=== PATIENT | female | born 1970 | race Caucasian/White ===

== ENCOUNTER 2023-04-02 21:08 | Outpatient (REF) | payer OTHER, SELFPAY ==
[2023-04-06 10:10] LABS: Age Gdln ACOG Testing Note (.); HPV Aptima Negative (Negative); IGP, Aptima HPV, rfx 16/18,45 Note (.)
== END 2023-04-02 21:09 | disposition home or self-care (01) ==
LOC: LAB 21:08
PROVIDERS: Visit Provider Physician Assistant
DX: Z01.419 Encounter for gynecological examination (general) (routine) without abnormal findings (principal)
CPT/HCPCS: 87624; G0145

== ENCOUNTER 2024-04-07 21:12 | Outpatient (REF) | payer OTHER, SELFPAY ==
--- OUTSIDE RECORDS SUMMARY | 2024-04-07 21:16 | XMS_ITS | CCD ---
Author Organization [facility] Care Team Providers Care Gps Navigation Installer Name Role Phone LEDA PAVONL B Unavailable Unavailable PAVON KUL B Unavailable Unavailable YASEMIN, AAKASH Admitting Unavailable YASEMINENRIQUEY Attending Unavailable ENRIQUE HAEZLY Consulting Unavailable Atilio Neff Primary Care Provider Hector Turner Unavailable Fina Flores Unavailable DANIELLE JUAREZ Attending Unavailable ATILIO NEFF Referring Unavailabl e AISHWARYA, [facility] Primary Care Unavailabl e AISHWARYA, ATILIO Horan Attending Unavailabl e AISHWARYA, ATILIO Referring Unavailabl e AISHWARYA, [facility] Primary Care Unavailabl e AISHWARYA, [facility] Primary Care Unavailabl JOHNNIE Antonio Attending Unavailable JOHNNIE LOPEZ Attending Unavailable JOHNNIE LOPEZ Referring Unavailable AISHWARYA, ATILIO Primary Care Unavailabl e AISHWARYA, ATILIO Primary Care UnavailCAMACHO Jaquez Attending Unavailable Hector Turner Admitting Unavailable Aishwarya Atilio Primary Care Unavailable Hector Turner Attending Unavailable Atilio Neff [facility] Unavailable Black Pham Attending Unavailab le Black Pham Admitting Unavailab le Allergies Allergy Classification Reported Allergen(s) Allergy Type Date of Onset Reaction(s) Facility Macrolides (antibiotic) (1 source) Clarithromycin Drug Allergy 03-16-19 10 [facility] Work Phone: Opioid Agonists (1 source) Meperidine Drug Allergy 06-16-19 10 Shortness of Breath [facility] Work Phone: (17 sources) Clarithromycin Drug Allergy 08-17-19 13 vomiting [facility] (17 sources) Meperidine Drug Allergy 08-17-19 13 hives [facility] (16 sources) Acetaminophen / oxyCODONE Drug Allergy insomnia [employer] Other (8 sources) Acetaminophen; Translations: [acetaminophen] Drug Allergy 06-08-19 insomnia [facility] (9 sources) Clarithromycin; Translations: [CLARITHROMYCIN] Drug Allergy 09-02-19 17 [facility] (9 sources) Meperidine; Translations: [MEPERIDINE] Drug Allergy 09-02-19 17 [facility] (8 sources) oxyCODONE; Translations: [oxycodone] Drug Allergy 06-08-19 [facility] (1 source) Acetaminophen / oxyCODONE; Translations: [OXYCODONE-ACETAM INOPHEN] Drug Allergy 09-02-19 [facility] (1 source) PROPOXYPHENE N-ACETAMINOPHEN; Translations: [PROPOXYPHENE N-ACETAMINOPHEN] Propensity to adverse reactions to drug (disorder) 02-25-19 18 [facility] (3 sources) bees Allergy to substance 10-31-19 [facility] Medications Current Medications Medication Drug Class(es) Dates Sig (Normalized) Sig (Original) 3 ML semaglutide 1.34 MG/ML Pen Injector [Ozempic] (3 sources) Start: 09-25-2022 inject 1 mg by subcutaneous injection every week Ozempic (1 MG/DOSE) 4 MG/3ML 1 mg Subcutaneous Once a week for 28 days Sep, Active Ozempic (1 MG/DO SE) 4 MG/3ML as directed Subcutaneous for 30 days Active 3 ML semaglutide 2.68 MG/ML Pen Injector [Ozempic] (14 sources) Start: 02-23-2022 inject 2 mg by subcutaneous injection every week Ozempic (2 MG/DOSE) 8 MG/3ML 2 mg Subcutaneous weekly for 30 days Feb, Active inject 2 mg by subcu taneous injection every week Ozempic (2 MG/DOSE) 8 MG/3ML INJECT 2 MG SUBCUTANEOUSLY ONCE A WEEK for 28 days Not-Taking inject 2 mg by subcu taneous injection every week Ozempic (2 MG/DOSE) 8 MG/3ML INJECT 2 MG SUBCUTANEOUSLY ONCE A WEEK for 28 days Active inject 2 mg by subcu taneous injection every week Ozempic (2 MG/DOSE) 8 MG/3ML INJECT 2 MG SUBCUTANEOUSLY ONCE A WEEK for 28 Active cariprazine 1.5 mg oral capsule (8 sources) Atypical Antipsychotic take 1 capsule by mouth every twenty-four hours Vraylar 1.5 MG 1 capsule Orally Once a day Active 24 hr desvenlafaxine succinate 50 mg extended release oral tablet (10 sources) Serotonin and Norepinephrine Reuptake Inhibitor Start: 2023 take 1 tablet by mouth once daily, then take 1 tablet by mouth every twenty-four hours Desvenlafaxine Succinate (Pristiq) 50 mg tablet extended release 24 hr Active 50 MG PO Daily April 04, 2023 12:00am take 1 tablet by mouth every twe nty-four hours diclofenac potassium 50 mg oral tablet (20 sources) Nonsteroidal Anti-inflammatory Drug Start: 04-04-2023 Diclofenac Potassium Active 50 MG PO As Directed April 04, 2023 1:00am Diclofenac Potassium 50 mg powder in packet (1 source) Start: 04-04-2023 Diclofenac Potassium 50 mg powder in packet Active 50 MG PO As Directed April 04, 2023 12:00am ibuprofen 200 mg oral tablet (20 sources) Nonsteroidal Anti-inflammatory Drug Start: 04-04-2023 take 1 tablet by mouth every six hours as needed Ibuprofen (Motrin Ib) 200 mg tablet Active 200 MG PO Every 6 hours as needed April 04, 2023 12:00am take 1 tablet by mouth every six hours levothyroxine sodium 0.2 mg oral capsule (20 sources) l-Thyroxine Start: 04-04-2023 take 1 capsule by mouth once daily Levothyroxine 200 mcg capsule Active 200 MCG PO Daily April 04, 2023 12:00am Start: 08-30-2015 take 1 capsule by [facility] every twenty-four hours Start: 08-30-[address] every twenty-four hours Levothyroxine Sodium 200 MCG 1 tablet Orally Once a day for 30 day(s) Aug, Active Start: 09-26-2011 take 0.5 tablet by [facility] once daily levothyroxine (SYNTHROID) 75 mcg tablet Take 0.5 tablets by mouth once daily. 15 tablet 11 09/26/2011 Active Comment on above: Take 0.5 tablets by mouth once daily. lisinopril 20 mg oral tablet (20 sources) Angiotensin Converting Enzyme Inhibitor Start: 04-13-2023 take 10 mg by mouth once daily Lisinopril 20 mg tablet Active 10 MG PO Daily April 13, 2023 8:20am Start: 04-13-2023 take 10 mg by mouth once daily Lisinopril Active 10 MG PO Daily April 13, 2023 9:20am Start: 04-04-2023 End: 04-13-2023 take 1 tablet by mouth once daily Lisinopril 20 mg tablet Discontinued 20 MG PO Daily April 04, 2023 12:00am April 13, 2023 8:24am Start: 07-28-2014 take 1 tablet by javier th every twenty-four hours LORazepam 0.5 mg oral tablet (20 sources) Benzodiazepine Start: 04-04-2023 take 1 tablet by mouth every twelve hours as needed Lorazepam 0.5 mg tablet Active 0.5 MG PO Every 12 hours as needed April 04, 2023 12:00am take 0.5 tablet by mouth every t welve hours melatonin 10 mg oral tablet (20 sources) Start: 04-04-2023 take 4 tablets by mouth once daily at bedtime Melatonin 10 mg tablet Active 40 MG PO Daily at bedtime April 04, 2023 12:00am Start: 04-04-2023 take 40 mg by mouth once daily at bedtime Melatonin Active 40 MG PO Daily at bedtime April 04, 2023 1:00am Start: 12-14-2009 Melatonin 200 mcg ORAL Tab Indications: Slow transit constipation TAKES 250 MG, FOUR TABLETS DAILY 0 12/14/2009 Active take 4 tablets by mo uth once daily at bedtime take 4 tablets by mo uth once daily at bedtime Melatonin 10 MG 4 tablets Orally QHS Active Comment on above: TAKES 250 MG, FOUR T ABLETS DAILY modified 24 hr metFORMIN hydrochloride 500 mg extended release oral tablet (20 sources) Biguanide Start: 04-13-2023 take 1 tablet by mouth once daily Metformin 500 mg tablet,ER em.retention 24 hr Active 1000 MG PO Daily April 13, 2023 8:20am Start: 04-04-2023 End: 04-13-2023 take 1 tablet by mouth twice daily Metformin 500 mg tablet,ER em.retention 24 hr Discontinued 500 MG PO Twice daily April 04, 2023 12:00am April 13, 2023 8:24am Start: 09-26-2011 take 1 tablet by javier twice daily metFORMIN 500 mg tablet Take 1 tablet by mouth twice daily. 60 tablet 11 09/26/2011 Active Comment on above: Take 1 tablet by javier twice daily. naproxen 500 mg oral tablet (20 sources) Nonsteroidal Anti-inflammatory Drug Start: 04-04-2023 take 1 tablet by mouth every twelve hours as needed Naproxen 500 mg tablet Active 500 MG PO Every 12 hours as needed April 04, 2023 12:00am take 1 tablet by mouth every twe lve hours omeprazole 20 mg delayed release oral capsule (19 sources) Proton Pump Inhibitor Start: 04-04-2023 take 1 capsule by mouth once daily Omeprazole 20 mg capsule,delayed release(DR/EC) Active 20 MG PO Daily April 04, 2023 12:00am take 1 capsule by mouth once sandy ly take 1 capsule by [facility] every twelve hours Omeprazole 20 MG 1 capsule Orally twice a day Not-Taking ozempic (1 mg/dose) 4 mg/3ml solution pen-injector (1 source) inject 1 mg by subcutaneous injection every week ozempic (2 mg/dose) 8 mg/3ml solution pen-injector (1 source) inject 2 mg by subcutaneous injection every week phentermine hydrochloride 37.5 mg oral tablet (20 sources) Sympathomimetic Amine Anorectic Start: 024 End: 025 take 1 tablet by mouth once daily Phentermine 37.5 mg tablet Active 37.5 MG PO Daily February 15, 2024 7:50am Start: 04-04-2023 End: 04-13-2023 Phentermine 37.5 mg tablet Discontinued 18.75 MG PO Daily April 04, 2023 12:00am April 13, 2023 8:38am Start: 04-04-2023 End: 04-13-2023 take 18.75 mg by mouth once daily Phentermine Discontinued 18.75 MG PO Daily April 04, 2023 1:00am April 13, 2023 9:38am Start: 03-14-2023 take 0.5 tablet by [facility] once daily Phentermine HCl 37.5 MG 1/2 tablet Orally Once a day for 30 days BMI 37.5. Feb, Active Semaglutide (Ozempic) 2 mg/dose (8 mg/3 mL) pen injector (20 sources) Start: 12-14-2023 inject 2 mg by subcutaneous injection every week Semaglutide (Ozempic) 2 mg/dose (8 mg/3 mL) pen injector Active 2 MG SUBCUT every week 3 December 14, 2023 10:00am Start: 12-14-2023 inject 2 mg by subcu taneous injection every week Semaglutide (Ozempic) 2 mg/dose (8 mg/3 mL) pen injector Active 2 MG SUBCUT every week 3 December 14, 2023 11:00am Start: 10-31-2023 End: 12-14-2023 inject 2 mg by subcutaneous injection every week Semaglutide (Ozempic) 2 mg/dose (8 mg/3 mL) pen injector Discontinued 2 MG SUBCUT every week 3 October 31, 2023 1:25pm December 14, 2023 10:01am Start: 10-31-2023 End: 12-14-2023 inject 2 mg by subcutaneous injection every week Semaglutide (Ozempic) 2 mg/dose (8 mg/3 mL) pen injector Discontinued 2 MG SUBCUT every week 3 October 31, 2023 2:25pm December 14, 2023 11:01am Start: 10-31-2023 inject 2 mg by subcu taneous injection every week Semaglutide (Ozempic) 2 mg/dose (8 mg/3 mL) pen injector Active 2 MG SUBCUT every week 3 October 31, 2023 2:25pm Start: 09-07-2023 End: 10-31-2023 inject 2 mg by subcutaneous injection every week Semaglutide (Ozempic) 2 mg/dose (8 mg/3 mL) pen injector Discontinued 2 MG SUBCUT every week 3 September 07, 2023 8:50am October 31, 2023 1:26pm Start: 09-07-2023 End: 10-31-2023 inject 2 mg by subcutaneous injection every week Semaglutide (Ozempic) 2 mg/dose (8 mg/3 mL) pen injector Discontinued 2 MG SUBCUT every week 3 September 07, 2023 9:50am October 31, 2023 2:26pm Start: 07-27-2023 End: 09-07-2023 inject 2 mg by subcutaneous injection every week Semaglutide (Ozempic) 2 mg/dose (8 mg/3 mL) pen injector Discontinued 2 MG SUBCUT every week 3 July 27, 2023 8:18am September 07, 2023 8:51am Start: 07-27-2023 End: 09-07-2023 inject 2 mg by subcutaneous injection every week Semaglutide (Ozempic) 2 mg/dose (8 mg/3 mL) pen injector Discontinued 2 MG SUBCUT every week 3 July 27, 2023 9:18am September 07, 2023 9:51am Start: 07-27-2023 inject 2 mg by subcu taneous injection every week Semaglutide (Ozempic) 2 mg/dose (8 mg/3 mL) pen injector Active 2 MG SUBCUT every week 3 July 27, 2023 9:18am Start: 06-08-2023 End: 07-27-2023 inject 2 mg by subcutaneous injection every week Semaglutide (Ozempic) 2 mg/dose (8 mg/3 mL) pen injector Discontinued 2 MG SUBCUT every week 3 June 08, 2023 7:51am July 27, 2023 8:19am Start: 06-08-2023 End: 07-27-2023 inject 2 mg by subcutaneous injection every week Semaglutide (Ozempic) 2 mg/dose (8 mg/3 mL) pen injector Discontinued 2 MG SUBCUT every week 3 June 08, 2023 8:51am July 27, 2023 9:19am Start: 06-08-2023 inject 2 mg by subcu taneous injection every week Semaglutide (Ozempic) 2 mg/dose (8 mg/3 mL) pen injector Active 2 MG SUBCUT every week 3 June 08, 2023 8:51am Start: 04-13-2023 End: 06-08-2023 inject 2 mg by subcutaneous injection every week Semaglutide (Ozempic) 2 mg/dose (8 mg/3 mL) pen injector Discontinued 2 MG SUBCUT every week 3 April 13, 2023 8:38am June 08, 2023 7:52am Start: 04-13-2023 End: 06-08-2023 inject 2 mg by subcutaneous injection every week Semaglutide (Ozempic) 2 mg/dose (8 mg/3 mL) pen injector Discontinued 2 MG SUBCUT every week 3 April 13, 2023 9:38am June 08, 2023 8:52am Start: 04-04-2023 End: 04-13-2023 inject 2 mg by subcutaneous injection every week Semaglutide (Ozempic) 2 mg/dose (8 mg/3 mL) pen injector Discontinued 2 MG SUBCUT every week 3 April 04, 2023 4:10pm April 13, 2023 8:38am Start: 04-04-2023 End: 04-13-2023 inject 2 mg by subcutaneous injection every week Semaglutide (Ozempic) 2 mg/dose (8 mg/3 mL) pen injector Discontinued 2 MG SUBCUT every week 3 April 04, 2023 5:10pm April 13, 2023 9:38am Start: 04-04-2023 End: 04-04-2023 inject 2 mg by subcutaneous injection every week Semaglutide (Ozempic) 2 mg/dose (8 mg/3 mL) pen injector Discontinued 2 MG SUBCUT every week April 04, 2023 12:00am April 04, 2023 4:13pm Start: 04-04-2023 End: 04-04-2023 inject 2 mg by subcutaneous injection every week Semaglutide (Ozempic) 2 mg/dose (8 mg/3 mL) pen injector Discontinued 2 MG SUBCUT every week April 04, 2023 1:00am April 04, 2023 5:13pm Tirzepatide (1 source) Start: 02-15-2024 Tirzepatide (Mounjaro) 2.5 mg/0.5 mL pen injector Active 2.5 MG SUBCUT every week 2 February 15, 2024 12:00am tiZANidine 2 mg oral tablet (20 sources) Central alpha-2 Adrenergic Agonist Start: 04-13-2023 take 2 tablets by mouth once as needed Tizanidine 2 mg tablet Active 4 MG PO Once as needed April 13, 2023 8:21am Start: 04-13-2023 take 4 mg by mouth once Tizani dine Active 4 MG PO Once April 13, 2023 9:21am Start: 04-04-2023 End: 04-13-2023 take 1 tablet by mouth three times daily as needed Tizanidine 2 mg tablet Discontinued 2 MG PO Three times daily as needed April 04, 2023 12:00am April 13, 2023 8:24am take 1 tablet by javier th every eight hours traZODone hydrochloride 100 mg oral tablet (20 sources) Serotonin Reuptake Inhibitor Start: 12-14-2023 take 1 tablet by mouth once daily at bedtime Trazodone 100 mg tablet Active 100 MG PO Daily at bedtime December 14, 2023 9:41am Start: 04-04-2023 End: 12-14-2023 Trazodone 100 mg tablet Disc ontinued 50 MG PO Daily at bedtime April 04, 2023 12:00am December 14, 2023 9:41am Start: 04-04-2023 End: 12-14-2023 take 50 mg by mouth once daily at bedtime Trazodone Discontinued 50 MG PO Daily at bedtime April 04, 2023 1:00am December 14, 2023 10:41am take 0.5 tablet by m out at bedtime take 2 tablets by mo azh at bedtime traZODone HCl 100 MG 2 tablets Orally HS Active vortioxetine 20 mg oral tablet (13 sources) take 1 tablet by javier th every twenty-four hours Trintellix 20 MG 1 tablet Orally Once a day Active Completed/Discontinued Medications Medication Drug Class(es) Dates Sig (Normalized) Sig (Original) ferrous sulfate 325 mg oral tablet (7 sources) Start: 04-13-2023 End: 09-07-2023 take 1 tablet by mouth once daily Ferrous Sulfate 325 mg (65 mg iron) tablet Discontinued 325 MG PO Daily April 13, 2023 12:00am September 07, 2023 8:25am liothyronine sodium 0.005 mg oral tablet (1 source) l-Triiodothyron ine Start: 09-26-2011 take 1 tablet by mouth twice daily liothyronine 5 mcg tablet Take 1 tablet by mouth twice daily. 60 tablet 11 09/26/2011 Active Comment on above: Take 1 tablet by javier th twice daily. microencapsulated potassium chloride 20 meq extended release oral tablet (1 source) Start: 05-02-2012 take 1 tablet by mouth once daily potassium chloride SR 20 mEq tablet Take 1 tablet by mouth once daily. 30 tablet 1 05/02/2012 Active Comment on above: Take 1 tablet by [facility] once daily. 0.25 mg, 0.5 mg dose 1.5 ml semaglutide 1.34 mg/ml pen injector (8 sources) Start: 01-11-2022 Ozempic (0.25 or 0.5 MG/DOSE) 2 MG/1.5ML 0.5 mg dose Subcutaneous weekly for 30 days 30 Dec, 2021 Not-Taking sertraline 25 mg oral tablet (1 source) Serotonin Reuptake Inhibitor take 1 tablet by mouth once daily sertraline (ZOLOFT) 25 mg ORAL tablet Take 25 mg by mouth once daily. 0 Active Comment on above: Take 25 mg by mouth once daily. Problems Active Problems Problem Classification Problem Date Documented Da te Episodic/Chronic Asthma (7 sources) Asthma; Translations: [Unspecified asthma, uncomplicated] 04-13-2023 Chronic Cardiac dysrhythmias (1 source) Sinus bradycardia; Translations: [Bradycardia, unspecified] 04-30-2012 Episodic Complications of surgical procedures or medical care (16 sources) Postoperative hypothyroidism; Translations: [Hypothyroidism, postsurgical] Chronic Diabetes mellitus with complications (20 sources) Disorder due to type 2 diabetes mellitus; Translations: [Diabetes mellitus type 2 with complications] Chronic Diabetes mellitus without complication (13 sources) Diabetes mellitus; Translations: [Type 2 diabetes mellitus without complications] 04-13-2023 Chronic Diabetes mellitus without complication (20 sources) Impaired fasting glycemia; Translations: [IFG (impaired fasting glucose)] Episodic Esophageal disorders (20 sources) Diffuse spasm of esophagus; Translations: [Esophagospasm] Chronic Essential hypertension (14 sources) Essential hypertension; Translations: [Essential (primary) hypertension] 04-13-2023 Chronic Gastritis and duodenitis (16 sources) Chronic gastritis; Translations: [Chronic gastritis] Chronic Gastroduodenal ulcer (except hemorrhage) (16 sources) Pyloric ulcer; Translations: [Antral ulcer] Chronic Headache; including migraine (1 source) Other migraine, not intractable, without status migrainosus; Translations: [Other migraine, not intractable, without status migrainosus] Onset: 01-08-2018 Chronic Headache; including migraine (2 sources) Headache; including migraine Onset: 05-20-2023 Immunizations and screening for infectious disease (1 source) Encounter for screening for human papillomavirus (HPV); Translations: [ENC SCREENING HUMAN PAPILLOMAVIRUS] Onset: 10-21-2018 Episodic Mood disorders (20 sources) Major depression, single episode; Translations: [Major depressive disorder, single episode, unspecified] Chronic Nonspecific chest pain (1 source) Chest pain, unspecified; Translations: [Chest pain, unspecified] Onset: 05-20-2023 Episodic Other circulatory disease (1 source) Elevated blood-pressure reading, without diagnosis of hypertension Episodic Other endocrine disorders (8 sources) Polycystic ovary syndrome; Translations: [Polycystic ovarian syndrome] 04-30-2012 Chronic Other endocrine disorders (15 sources) Polycystic ovaries; Translations: [Polycystic ovarian syndrome] Chronic Other endocrine disorders (9 sources) Polycystic ovarian syndrome; Translations: [PCOS (polycystic ovarian syndrome)] Chronic Other gastrointestinal disorders (20 sources) Dysphagia; Translations: [Dysphagia] Episodic Other nutritional; endocrine; and metabolic disorders (16 sources) Metabolic syndrome X; Translations: [Metabolic syndrome] Chronic Other nutritional; endocrine; and metabolic disorders (8 sources) Metabolic syndrome Chronic Other nutritional; endocrine; and metabolic disorders (15 sources) Body mass index 40+ - severely obese; Translations: [Body mass index (BMI) 40.0-44.9, adult] Chronic Other nutritional; endocrine; and metabolic disorders (20 sources) Obese class II; Translations: [Body mass index (BMI) 35.0-35.9, adult] 04-13-2023 Chronic Other nutritional; endocrine; and metabolic disorders (16 sources) Obesity; Translations: [Obesity, unspecified] Chronic Other nutritional; endocrine; and metabolic disorders (13 sources) Obesity, unspecified; Translations: [Obesity, unspecified] Chronic Other nutritional; endocrine; and metabolic disorders (4 sources) Body mass index (BMI) 35.0-35.9, adult Chronic Other nutritional; endocrine; and metabolic disorders (1 source) Body mass index (BMI) 33.0-33.9, adult Chronic Other nutritional; endocrine; and metabolic disorders (20 sources) Abnormal weight gain; Translations: [Weight gain, abnormal] 07-26-2023 Episodic Other nutritional; endocrine; and metabolic disorders (1 source) Abnormal weight gain Episodic Poisoning by other medications and drugs (2 sources) Poisoning by unspecified drugs, medicaments and biological substances, undetermined, initial encounter; Translations: [Poisoning by unspecified drugs, medicaments and biological substances, accidental (unintentional), initial encounter] Onset: 07-29-2023 Episodic Residual codes; unclassified (16 sources) Obstructive sleep apnea syndrome; Translations: [Obstructive sleep apnea (adult) (pediatric)] Chronic Residual codes; unclassified (13 sources) Obstructive sleep apnea (adult) (pediatric); Translations: [Obstructive sleep apnea (adult)(pediatric)] Chronic Residual codes; unclassified (7 sources) Obstructive sleep apnea of adult; Translations: [Obstructive sleep apnea (adult) (pediatric)] 04-13-2023 Chronic Residual codes; unclassified (20 sources) Insomnia; Translations: [Insomnia, unspecified] 04-13-2023 Episodic Residual codes; unclassified (8 sources) Insomnia, unspecified Episodic Syncope (1 source) Syncope; Translations: [Syncope and collapse] 04-30-2012 Episodic Thyroid disorders (20 sources) Hypothyroidism; Translations: [Hypothyroidism, unspecified] Onset: 08-22-2010 08-22-2010 Chronic Thyroid disorders (16 sources) Disorder of thyroid gland; Translations: [History of thyroidectomy, total] Episodic Unclassified (1 source) Toxicology Problem Onset: 07-29-2023 Past or Other Problems Problem Classification Problem Date Documented Da te Episodic/Chronic Administrative/social admission (1 source) Dietary counseling and surveillance; Translations: [Dietary counseling and surveillance] Onset: 03-08-2023 Episodic Other gastrointestinal disorders (1 source) Incontinence of feces; Translations: [Full incontinence of feces] Onset: 06-02-2012 06-02-2012 Episodic Other screening for suspected conditions (not mental disorders or infectious disease) (5 sources) Encounter for screening for malignant neoplasm of cervix; Translations: [Encounter for screening mammogram for malignant neoplasm of breast] Onset: 10-15-2018 Episodic Residual codes; unclassified (1 source) Asymptomatic menopausal state; Translations: [Asymptomatic menopausal state] Onset: 04-13-2023 Episodic Suicide and intentional self-inflicted injury (1 source) Suicidal ideations; Translations: [Suicidal ideations] Onset: 02-22-2017 Episodic Results Test Name Value Interpretation Reference Range Facility Laboratory - Hematology and Cell countson 10-31-2023 HbA1c (Bld) [Mass fraction] 5.2 % [facility] Laboratory - Chemistry and C hemistry - challengeon 09-06-2023 Cobalamin (Vitamin B12) [Mass/Vol] 414 pg/mL [facility] Cholesterol [Mass/Vol] 164 mg/dL [facility] Cholesterol in HDL [Mass/Vol] 78 mg/dL [facility] Cholesterol in LDL [Mass/Vol] 74 mg/dL [facility] Cholesterol.total/Cho lesterol in HDL [Mass ratio] 2.1 {ratio} [facility] Triglyceride [Mass/Vol] 60 mg/dL [facility] Albumin [Mass/Vol] 4.5 g/dL [facility] ALP [Catalytic activity/Vol] 79 U/L [facility] ALT [Catalytic activity/Vol] 16 U/L [facility] AST [Catalytic activity/Vol] 18 U/L [facility] Bilirubin [Mass/Vol] 0.4 mg/dL [facility] Calcium [Mass/Vol] 10 mg/dL [facility] Chloride [Moles/Vol] 102 mmol/L [facility] CO2 [Moles/Vol] 28 mmol/L [facility] Creatinine [Mass/Vol] 0.76 mg/dL [facility] GFR/1.73 sq M.predicted MDRD (S/P/Bld) [Vol rate/Area] 94 mL/min/{1.73_m2} [facility] Glucose [Mass/Vol] 85 mg/dL [facility] Potassium [Moles/Vol] 4.0 mmol/L [facility] Protein [Mass/Vol] 6.8 g/dL [facility] Sodium [Moles/Vol] 140 mmol/L [facility] Urea nitrogen [Mass/Vol] 16 mg/dL [facility] Creatinine (U) [Mass/Vol] 308.1 mg/dL [facility] No Panel Informationon 09-05 Thyroid Stimulating Hormone 3rd Gen 0.03 [facility] VLDL Cholesterol 12 mg/dL [facility] Estimated GFR (Non- 94 mL/min [facility] Urine Microalbumin mg/dl <1.2 [facility] ACETAMINOPHENon 07-30-2023 Acetaminophen [Mass/Vol] 2.5 ug/mL Low 10.0-30.0 [facility] Comment on above: Result Comment: Refe rence ranges are for therapeutic limits. Performed By: #### 3 298-7 ####[facility] ([id number])[address] [place] [address] 28015 DRUG SCREEN, URINEon 024 AMPHETAMINE/METHAMP Negative Normal NEG [facility] Comment on above: Result Comment: AMPH /METH screening cut off = 1000 ng/mL Performed By: #### D MARSHALL ####[facility] ([id number])[address] [place] [address] 40995 BARBITURATES Negative Normal NEG [facility] Comment on above: Result Comment: Anna iturates screening cut off value = 200 ng/mL Performed By: #### D MARSHALL ####[facility] ([id number])[address] [place] [address] 44453 BENZODIAZEPINES Positive Abnormal NEG [facility] Comment on above: Result Comment: Conf irmation available upon request. Benzodiazepines screening cut off value = 200 ng/mL Performed By: #### D MARSHALL ####[facility] ([id number])[address] [place] [address] 22640 CANNABINOIDS Negative Normal NEG [facility] Comment on above: Result Comment: [place] abinoids/THC screening cut off value = 50 ng/mL Performed By: #### D MARSHALL ####[facility] ([id number])[address] [place] [address] 94907 COCAINE METABOLITE Negative Normal NEG [facility] Comment on above: Result Comment: Coca ine screening cut off value = 300 ng/mL Performed By: #### D MARSHALL ####[facility] ([id number])[address] [place] [address] 17813 ECSTASY Negative Normal NEG [facility] Comment on above: Result Comment: Ecst asy screening cut off value = 500 ng/mL This report is intended for use in clinical monitoring or management of patients. Performed By: #### D MARSHALL ####[facility] ([id number])[address] [place] [address] 28364 METHADONE Negative Normal NEG [facility] Comment on above: Result Comment: Meth adone screening cut off value = 300 ng/mL. Performed By: #### D MARSHALL ####[facility] ([id number])[address] [place] [address] 52341 OPIATES Negative Normal NEG [facility] Comment on above: Result Comment: Opia robby screening cut off value = 300 ng/mL NOTE: This test is used for the detection of codeine, hydrocodone (>1000 ng/mL), morphine and hydromorphone (>900 ng/mL) in urine. Performed By: #### D MARSHALL ####[facility] ([id number])[address] [place] [address] 49327 OXYCODONE Negative Normal NEG [facility] Comment on above: Result Comment: Oxyc odone screening cut off value = 300 ng/mL NOTE: This test is used for the detection of oxycodone and oxymorphone in urine. Performed By: #### D MARSHALL ####[facility] ([id number])[address] [place] [address] 63949 PHENCYCLIDINE Negative Normal NEG [facility] Comment on above: Result Comment: Phen cyclidine screening cut off value = 25 ng/mL Performed By: #### D MARSHALL ####[facility] ([id number])[address] [place] [address] 20329 URINE CULTUREon 07-30-2023 Bacteria identified Cx Nom (U) CULTURE RESULTS <10,000 ORGANISMS/ML NORMAL URO GENITAL NATHALIE Normal [facility] Comment on above: Performed By: #### 6 30-4 ####[facility] ([id number])[address] [place] [address], [address], [place] [address] URN MACROSCOPIC NURon 2023 BILIRUBIN CATHERINE Negative Normal NEG [facility] Comment on above: Performed By: #### N UM ####[facility] ([id number])[address] [place] [address], [place] [address] BLOOD/HGB CATHERINE Negative Normal NEG [facility] Comment on above: Performed By: #### N UM ####[facility] ([id number])[address] [place] [address], [place] [address] GLUCOSE CATHERINE Negative Normal NEG [facility] Comment on above: Performed By: #### N UM ####[facility] ([id number])[address] [place] [address], [place] [address] KETONES CATHERINE Negative Normal NEG [facility] Comment on above: Performed By: #### N UM ####[facility] ([id number])[address] [place] [address], [place] [address] LEUKOCYTE ESTERASE CATHERINE Negative Normal NEG [facility] Comment on above: Performed By: #### N UM ####[facility] ([id number])[address] [place] [address], [place] [address] NITRITE CATHERINE Negative Normal NEG [facility] Comment on above: Performed By: #### N UM ####[facility] ([id number])[address] [place] [address], [place] [address] PH CATHERINE 6.0 Normal 5.0-8.5 [facility] Comment on above: Performed By: #### N UM ####[facility] ([id number])[address] [place] [address], [place] [address] PROTEIN CATHERINE Negative Normal NEG [facility] Comment on above: Performed By: #### N UM ####[facility] ([id number])[address] [place] [address] 07472 SPECIFIC GRAVITY CATHERINE 1.015 Normal 1.003-1.035 [facility] Comment on above: Performed By: #### N UM ####[facility] ([id number])[address] [place] [address] 14737 UROBILINOGEN CATHERINE 0.2 eu/dL Normal <1.1 [facility] Comment on above: Performed By: #### N UM ####[facility] ([id number])[address] [place] [address] 96447 ACETAMINOPHENon 07-29-2023 Acetaminophen [Mass/Vol] 3.6 ug/mL Low 10.0-30.0 [facility] Comment on above: Result Comment: Refe rence ranges are for therapeutic limits. Performed By: #### C BCA, CMP, 3298-7, 5643-2, 4024-6 ####[facility] ([id number])[address] [place] [address] 85798 CBC AND AUTO DIFFon 07-29-19 24 ABSOLUTE BASOPHIL 0.0 X10E9/L Normal 0.0-0.2 [facility] Comment on above: Performed By: #### C BCA, CMP, 3298-7, 5643-2, 4024-6 ####[facility] ([id number])[address] [place] [address] 03424 ABSOLUTE NEUTROPHIL 2.7 X10E9/L Normal 1.5-6.6 [facility] Comment on above: Performed By: #### C BCA, CMP, 3298-7, 5643-2, 4024-6 ####[facility] ([id number])[address] [place] [address] 65568 Basophils/100 WBC (Bld) 0.6 % Normal [facility] Comment on above: Performed By: #### C BCA, CMP, 3298-7, 5643-2, 4024-6 ####[facility] ([id number])[address] [place] [address] 89957 Eosinophils (Bld) [#/Vol] 0.1 10*3/uL Normal 0.0-0.4 [facility] Comment on above: Performed By: #### Chelo RICO [facility], [facility], [facility]-2, 4023-6 ####[facility] ([id number])[address] [place] [address] 80618 Eosinophils/100 WBC (Bld) 2.4 % Normal [facility] Comment on above: Performed By: #### Chelo RICO [facility], [facility], [facility]-2, 4023-6 ####[facility] ([id number])[address] [place] [address] 95044 Erythrocyte distribution width (RBC) [Ratio] 14.3 % Normal 11.5-15.0 [facility] Comment on above: Performed By: #### Chelo RICO [facility], [facility], [facility]-2, 4026 ####[facility] ([id number])[address] [place] [address] 40499 Hematocrit (Bld) [Volume fraction] 31.5 % Low 35-47 [facility] Comment on above: Performed By: #### Chelo RICO [facility], [facility], [facility]-2, 4026 ####[facility] ([id number])[address] [place] [address] 59951 Hemoglobin (Bld) [Mass/Vol] 10.6 g/dL Low 11.7-15.5 [facility] Comment on above: Performed By: #### Chelo RICO, CMP, [facility], 43-2, 4024-6 ####[facility] ([id number])[address] [place] [address] 60109 Lymphocytes (Bld) [#/Vol] 1.6 10*3/uL Normal 1.0-3.5 [facility] Comment on above: Performed By: #### C TRISHA CMP, [facility], 5643-2, 4024-6 ####[facility] ([id number])[address] [place] [address] 00512 Lymphocytes/100 WBC (Bld) 33.2 % Normal [facility] Comment on above: Performed By: #### Chelo RICO, CMP, [facility], [facility]-2, 4023-6 ####[facility] ([id number])[address] [place] [address] 10413 MCH (RBC) [Entitic mass] 27.5 pg Normal 27-34 [facility] Comment on above: Performed By: #### Chelo RICO, CMP, [facility], [facility]-2, 4024-6 ####[facility] ([id number])[address] [place] [address] 44803 MCHC (RBC) [Mass/Vol] 33.6 g/dL Normal 32-36 [facility] Comment on above: Performed By: #### Chelo RICO, CMP, [facility], 43-2, 4024-6 ####[facility] ([id number])[address] [place] [address] 19119 MCV (RBC) [Entitic vol] 82 fL Normal 80-100 [facility] Comment on above: Performed By: #### Chelo RICO, CMP, [facility], 43-2, 4024-6 ####[facility] ([id number])[address] [place] [address] 17029 Monocytes (Bld) [#/Vol] 0.5 10*3/uL Normal 0-0.9 [facility] Comment on above: Performed By: #### Chelo RICO, CMP, [facility], 5643-2, 4024-6 ####[facility] ([id number])[address] [place] [address] 23887 Monocytes/100 WBC (Bld) 9.3 % Normal [facility] Comment on above: Performed By: #### C BCA, CMP, 3298-7, 5643-2, 4024-6 ####[facility] ([id number])[address] [place] [address] 91340 Neutrophils/100 WBC (Bld) 54.5 % Normal [facility] Comment on above: Performed By: #### C TRISHA, CMP, 3298-7, 5643-2, 4024-6 ####[facility] ([id number])[address] [place] [address] 02459 Platelet mean volume (Bld) [Entitic vol] 8.1 fL Normal 7-12 [facility] Comment on above: Performed By: #### Chelo RICO, CMP, 3298-7, 5643-2, 4024-6 ####[facility] ([id number])[address] [place] [address] 54758 Platelets (Bld) [#/Vol] 197 10*3/uL Normal 150-450 [facility] Comment on above: Performed By: #### Chelo RICO, CMP, 3298-7, 5643-2, 4024-6 ####[facility] ([id number])[address] [place] [address] 46201 RBC COUNT 3.84 X10E12/L Normal 3.80-5.20 [facility] Comment on above: Performed By: #### Chelo RICO, CMP, 3298-7, 5643-2, 4024-6 ####[facility] ([id number])[address] [place] [address] 63285 WBC (Bld) [#/Vol] 4.9 10*3/uL Normal 4.0-11.0 [facility] Comment on above: Performed By: #### C BCA, CMP, 3298-7, 5643-2, 4024-6 ####[facility] ([id number])[address] [place] [address] [place] [address] COMPREHENSIVE METABOLIC PANE Tera 07-29-2023 Albumin [Mass/Vol] 3.6 g/dL Normal 3.2-5.3 [facility] Comment on above: Performed By: #### C BCA, CMP, 3298-7, 5643-2, 4024-6 ####[facility] ([id number])[address] [place] [address] 67208 ALP [Catalytic activity/Vol] 58 U/L Normal 39-130 [facility] Comment on above: Performed By: #### C BCA, CMP, 3298-7, 5643-2, 4024-6 ####[facility] ([id number])[address] [place] [address] [place] [address] ALT [Catalytic activity/Vol] 20 U/L Normal 0-31 [facility] Comment on above: Performed By: #### C BCA, CMP, 3298-7, 5643-2, 4024-6 ####[facility] ([id number])[address] [place] [address] [place] [address] Anion gap [Moles/Vol] 6 mmol/L Normal 5-15 [facility] Comment on above: Performed By: #### C BCA, CMP, 3298-7, 5643-2, 4024-6 ####[facility] ([id number])[address] [place] [address] [place] [address] AST [Catalytic activity/Vol] 23 U/L Normal 0-41 [facility] Comment on above: Performed By: #### C BCA, CMP, 3298-7, 5643-2, 4024-6 ####[facility] ([id number])[address] [place] [address] 81353 Bilirubin [Mass/Vol] 0.4 mg/dL Normal 0.3-1.2 [facility] Comment on above: Performed By: #### C TRISHA CMP, 3298-7, 5643-2, 4024-6 ####[facility] ([id number])[address] [place] [address] 65514 Calcium [Mass/Vol] 9.0 mg/dL Normal 8.5-10.5 [facility] Comment on above: Performed By: #### C TRISHA, CMP, [facility], 5643-2, 4024-6 ####[facility] ([id number])[address] [place] [address] 46536 Chloride [Moles/Vol] 104 mmol/L Normal 98-109 [facility] Comment on above: Performed By: #### C ALEXANDER RICO, [facility], 5643-2, 4024-6 ####[facility] ([id number])[address] [place] [address] 39694 CO2 [Moles/Vol] 25 mmol/L Normal 22-32 [facility] Comment on above: Performed By: #### C TRISHA, CMP, [facility]-7, 5643-2, 4024-6 ####[facility] ([id number])[address] [place] [address] 74382 Creatinine [Mass/Vol] 0.71 mg/dL Normal 0.40-1.00 [facility] Comment on above: Result Comment: METH OD TRACEABLE TO IDMS STANDARD Performed By: #### C TRISHA, CMP, [facility]-7, 5643-2, 4024-6 ####[facility] ([id number])[address] [place] [address] 14157 eGFR (CKD-EPI) NON-RACE DEPENDENT >90 Normal >59 [facility] Comment on above: Result Comment: Reported eGFR is based on the CKD-EPI 2020 equation that does not use a race coefficient. Performed By: #### C BCA, CMP, 3298-7, 5643-2, 4024-6 ####[facility] ([id number])[address] [place] [address] 38432 Glucose [Mass/Vol] 114 mg/dL High 65-99 [facility] Comment on above: Performed By: #### C BCA, CMP, 3298-7, 5643-2, 4024-6 ####[facility] ([id number])[address] [place] [address] 15887 Potassium [Moles/Vol] 3.6 mmol/L Normal 3.5-5.0 [facility] Comment on above: Performed By: #### C BCA, CMP, 3298-7, 5643-2, 4024-6 ####[facility] ([id number])[address] [place] [address] 60274 Protein [Mass/Vol] 6.5 g/dL Normal 6.0-8.0 [facility] Comment on above: Performed By: #### C TRISHA, CMP, 3298-7, 5643-2, 4024-6 ####[facility] ([id number])[address] [place] [address] 78202 Sodium [Moles/Vol] 135 mmol/L Normal 134-146 [facility] Comment on above: Performed By: #### C BCA, CMP, 3298-7, 5643-2, 4024-6 ####[facility] ([id number])[address] [place] [address] 60744 Urea nitrogen [Mass/Vol] 13 mg/dL Normal 5-23 [facility] Comment on above: Performed By: #### C BCA, CMP, 3298-7, 5643-2, 4024-6 ####[facility] ([id number])[address] [place] [address] 95157 ETHANOLon 07-29-2023 Ethanol [Mass/Vol] mg/dL Normal 0.00-0.08 [facility] Comment on above: Result Comment: This report is intended for use in clinical monitoring or management of patients. Performed By: #### C ALEXANDER RICO, 3298-7, 5643-2, 4024-6 ####[facility] ([id number])[address] [place] [address] 67224 Salicylates [Mass/Vol]on SALICYLATE <4.0 Normal 2.0-25.0 [facility] Comment on above: Result Comment: Refe rence ranges are for therapeutic limits. Performed By: #### C ALEXANDER RICO, 3298-7, 5643-2, 4024-6 ####[facility] ([id number])[address] [place] [address] 54767 CBC AND AUTO DIFFon 05-20-19 ABSOLUTE BASOPHIL 0.0 X10E9/L Normal 0.0-0.2 [facility] Comment on above: Performed By: #### C ALEXANDER RICO, 13864-4, 05847-5 #### [facility] ([id number]) [address] [place] [address] 90975 ABSOLUTE NEUTROPHIL 4.5 X10E9/L Normal 1.5-6.6 [facility] Comment on above: Performed By: #### Chelo RICO CMP, 24650-2, 28830-4 #### [facility] ([id number]) [address] [place] [address] 85899 Basophils/100 WBC (Bld) 0.4 % Normal [facility] Comment on above: Performed By: #### Chelo RICO CMP, 46232-0, 04535-9 #### [facility] ([id number]) [address] [place] [address] 52545 Eosinophils (Bld) [#/Vol] 0.2 10*3/uL Normal 0.0-0.4 [facility] Comment on above: Performed By: #### C TRISHA, ALEXANDER, 95623-6, 50751-1 #### [facility] ([id number]) [address] [place] [address] 03279 Eosinophils/100 WBC (Bld) 2.7 % Normal [facility] Comment on above: Performed By: #### C TRISHA CMP, 45059-2, 33936-6 #### [facility] ([id number]) [address] [place] [address] 65264 Erythrocyte distribution width (RBC) [Ratio] 22.1 % High 11.5-15.0 [facility] Comment on above: Performed By: #### Chelo RICO, CMP, 35192-2, 57492-0 #### [facility] ([id number]) [address] [place] [address] 06317 Hematocrit (Bld) [Volume fraction] 38.0 % Normal 35-47 [facility] Comment on above: Performed By: #### Chelo RICO, CMP, 15861-4, 88878-6 #### [facility] ([id number]) [address] [place] [address] 68990 Hemoglobin (Bld) [Mass/Vol] 12.8 g/dL Normal 11.7-15.5 [facility] Comment on above: Performed By: #### Chelo RICO, CMP, 36220-5, 39010-7 #### [facility] ([id number]) [address] [place] [address] 66453 Lymphocytes (Bld) [#/Vol] 1.4 10*3/uL Normal 1.0-3.5 [facility] Comment on above: Performed By: #### Chelo RICO, CMP, 10640-8, 51208-5 #### [facility] ([id number]) [address] [place] [address] 10730 Lymphocytes/100 WBC (Bld) 21.7 % Normal [facility] Comment on above: Performed By: #### C TRISHA CMP, 89607-1, 73581-1 #### [facility] ([id number]) [address] [place] [address] 10849 MCH (RBC) [Entitic mass] 26.3 pg Low 27-34 [facility] Comment on above: Performed By: #### C TRISHA, CMP, 38514-9, 26738-7 #### [facility] ([id number]) [address] [place] [address] 87986 MCHC (RBC) [Mass/Vol] 33.6 g/dL Normal 32-36 [facility] Comment on above: Performed By: #### C TRISHA, CMP, 03064-6, 86373-4 #### [facility] ([id number]) [address] [place] [address] 90736 MCV (RBC) [Entitic vol] 78 fL Low 80-100 [facility] Comment on above: Performed By: #### C TRISHA, CMP, 65741-9, 35610-5 #### [facility] ([id number]) [address] [place] [address] 19278 Monocytes (Bld) [#/Vol] 0.5 10*3/uL Normal 0-0.9 [facility] Comment on above: Performed By: #### Chelo RICO CMP, 64361-0, 78793-2 #### [facility] ([id number]) [address] [place] [address] 71068 Monocytes/100 WBC (Bld) 7.8 % Normal [facility] Comment on above: Performed By: #### Chelo RICO, CMP, 54090-9, 90300-6 #### [facility] ([id number]) [address] [place] [address] 78061 Neutrophils/100 WBC (Bld) 67.4 % Normal [facility] Comment on above: Performed By: #### C TRISHA, CMP, 11262-2, 88855-7 #### [facility] ([id number]) [address] [place] [address] 39508 Platelet mean volume (Bld) [Entitic vol] 8.0 fL Normal 7-12 [facility] Comment on above: Performed By: #### C TRISHA, CMP, 00867-0, 55498-7 #### [facility] ([id number]) [address] [place] [address] 53285 Platelets (Bld) [#/Vol] 224 10*3/uL Normal 150-450 [facility] Comment on above: Performed By: #### C BCA, CMP, 14741-3, 62168-2 #### [facility] ([id number]) [address] [place] [address] 45000 RBC COUNT 4.85 X10E12/L Normal 3.80-5.20 [facility] Comment on above: Performed By: #### C TRISHA, CMP, 08016-7, 37826-7 #### [facility] ([id number]) [address] [place] [address] 29615 RBC morphology finding Nom (Bld) REVIEWED Normal [facility] Comment on above: Performed By: #### C BCA, CMP, 22031-2, 21605-3 #### [facility] ([id number]) [address] [place] [address] 79171 WBC (Bld) [#/Vol] 6.6 10*3/uL Normal 4.0-11.0 [facility] Comment on above: Performed By: #### C BCA, CMP, 86592-3, 10080-1 #### [facility] ([id number]) [address] [place] [address] 28524 COMPREHENSIVE METABOLIC PANE Tera 05-20-2023 Albumin [Mass/Vol] 4.2 g/dL Normal 3.2-5.3 [facility] Comment on above: Performed By: #### C TRISHA, CMP, 00922-7, 17842-3 #### [facility] ([id number]) [address] [place] [address] 95347 ALP [Catalytic activity/Vol] 64 U/L Normal 39-130 [facility] Comment on above: Performed By: #### C BCA, CMP, 90537-0, 98049-4 #### [facility] ([id number]) [address] [place] [address] 69625 ALT [Catalytic activity/Vol] 28 U/L Normal 0-31 [facility] Comment on above: Performed By: #### C BCA, CMP, 43726-5, 17961-5 #### [facility] ([id number]) [address] [place] [address] 34411 Anion gap [Moles/Vol] 9 mmol/L Normal 5-15 [facility] Comment on above: Performed By: #### C TRISHA, CMP, 95020-2, 47016-1 #### [facility] ([id number]) [address] [place] [address] 10189 AST [Catalytic activity/Vol] 21 U/L Normal 0-41 [facility] Comment on above: Performed By: #### C BCA, CMP, 15817-0, 68017-5 #### [facility] ([id number]) [address] [place] [address] 72189 Bilirubin [Mass/Vol] 0.7 mg/dL Normal 0.3-1.2 [facility] Comment on above: Performed By: #### C BCA, CMP, 46450-2, 69096-5 #### [facility] ([id number]) [address] [place] [address] 42398 Calcium [Mass/Vol] 9.7 mg/dL Normal 8.5-10.5 [facility] Comment on above: Performed By: #### C ALEXANDER RICO, 45216-8, 58830-5 #### [facility] ([id number]) [address] [place] [address] 69537 Chloride [Moles/Vol] 100 mmol/L Normal 98-109 [facility] Comment on above: Performed By: #### C ALEXANDER RICO, 42266-2, 09367-1 #### [facility] ([id number]) [address] [place] [address] 98893 CO2 [Moles/Vol] 27 mmol/L Normal 22-32 [facility] Comment on above: Performed By: #### C ALEXANDER RICO, 13922-6, 41015-2 #### [facility] ([id number]) [address] [place] [address] 93061 Creatinine [Mass/Vol] 0.79 mg/dL Normal 0.40-1.00 [facility] Comment on above: Result Comment: METH OD TRACEABLE TO IDMS STANDARD Performed By: #### C ALEXANDER RICO, 96510-1, 07184-0 #### [facility] ([id number]) [address] [place] [address] 39387 GFR/1.73 sq M.predicted among non-blacks MDRD (S/P/Bld) [Vol rate/Area] 90 mL/min/{1.73_m2} Normal >59 [facility] Comment on above: Result Comment: Reported eGFR is based on the CKD-EPI 2020 equation that does not use a race coefficient. Performed By: #### C ALEXANDER RICO, 38114-1, 57537-3 #### [facility] ([id number]) [address] [place] [address] 31178 Glucose [Mass/Vol] 83 mg/dL Normal 65-99 [facility] Comment on above: Performed By: #### C ALEXANDER RICO, 40804-0, 62674-5 #### [facility] ([id number]) [address] [place] [address] 03751 Potassium [Moles/Vol] 3.8 mmol/L Normal 3.5-5.0 [facility] Comment on above: Performed By: #### C BCA, CMP, 50532-9, 93088-4 #### [facility] ([id number]) [address] [place] [address] 43161 Protein [Mass/Vol] 7.4 g/dL Normal 6.0-8.0 [facility] Comment on above: Performed By: #### C BCA, CMP, 11249-9, 77994-2 #### [facility] ([id number]) [address] [place] [address] 19976 Sodium [Moles/Vol] 136 mmol/L Normal 134-146 [facility] Comment on above: Performed By: #### C BCA, CMP, 21441-7, 37383-5 #### [facility] ([id number]) [address] [place] [address] 64990 Urea nitrogen [Mass/Vol] 13 mg/dL Normal 5-23 [facility] Comment on above: Performed By: #### C BCA, CMP, 48151-2, 23825-5 #### [facility] ([id number]) [address] [place] [address] BRAIN WO CONTon CT BRAIN WO CONT CT BRAIN WO CONT Examination: Noncontrast brain CT Date of Exam:05/20/2023 Clinical History:New migraine headache Comparison:08/15/2018 Procedure: Multi-detector CT performed through the brain without IV contrast. Automatic exposure control (AEC) was utilized. Findings: There is no intracranial hemorrhage, extra-axial fluid collection, mass effect, or hydrocephalus. Arambula-white matter differentiation is appropriate. Infarcts may be occult on CT, but grossly no acute infarct identified There is no midline shift. IMPRESSION: 1. No acute findings. All CT scans at this facility use dose modulation, iterative reconstruction, and/or weight based dosing when appropriate to reduce radiation dose to as low as reasonably achievable. Finalized by Marlo Rodriguez MD on 05/20/2023 12:58 PM Normal [facility] Fibrin D-dimer DDU (PPP) [Ma ss/Vol]on 05-20-2023 D DIMER 175 ng/mL DDU Normal <255 [facility] Comment on above: Result Comment: Results <255 ng/mL DDU: The presence of a VTE can safely be excluded with a negative D-Dimer result and Wells score. A negative result doesn't exclude the possibility of DIC. The test be repeated along with other diagnostic tests if the patient's symptoms persist or worsen. [email or web address] Performed By: #### C ALEXANDER RICO, 45810-5, 22246-5 #### [facility] ([id number]) [address] [place] [address] 28986 TROPONIN Ion 05-20-2023 Troponin I.cardiac [Mass/Vol] ng/mL Normal 0.00-0.04 [facility] Comment on above: Performed By: #### 1 0839-9 #### [facility] ([id number]) [address] [place] [address] 02645 Troponin I.cardiac [Mass/Vol] ng/mL Normal 0.00-0.04 [facility] Comment on above: Performed By: #### C TRISHA CMP, 19720-0, 11213-1 #### [facility] ([id number]) [address] [place] [address] 16621 URN MACROSCOPIC NURon 2023 BILIRUBIN CATHERINE Negative Normal NEG [facility] Comment on above: Performed By: #### N UM #### [facility] ([id number]) [address] [place] [address] 35635 BLOOD/HGB CATHERINE Negative Normal NEG [facility] Comment on above: Performed By: #### N UM #### [facility] ([id number]) [address] [place] [address] 12699 GLUCOSE CATHERINE Negative Normal NEG [facility] Comment on above: Performed By: #### N UM #### [facility] ([id number]) [address] [place] [address] [place] [address] KETONES CATHERINE Negative Normal NEG [facility] Comment on above: Performed By: #### N UM #### [facility] ([id number]) [address] [place] [address] 19494 LEUKOCYTE ESTERASE CATHERINE Negative Normal NEG [facility] Comment on above: Performed By: #### N UM #### [facility] ([id number]) [address] [place] [address] [place] [address] NITRITE CATHERINE Negative Normal NEG [facility] Comment on above: Performed By: #### N UM #### [facility] ([id number]) [address] [place] [address] 83209 PH CATHERINE 8.5 Normal 5.0-8.5 [facility] Comment on above: Performed By: #### N UM #### [facility] ([id number]) [address] [place] [address] [place] [address] PROTEIN CATHERINE Negative Normal NEG [facility] Comment on above: Performed By: #### N UM #### [facility] ([id number]) [address] [place] [address] 55383 SPECIFIC GRAVITY CATHERINE 1.015 Normal 1.003-1.035 [facility] Comment on above: Performed By: #### N UM #### [facility] ([id number]) [address] [place] [address] 33634 UROBILINOGEN CATHERINE 0.2 eu/dL Normal <1.1 [facility] Comment on above: Performed By: #### N UM #### [facility] ([id number]) [address] [place] [address] DEXA SCAN CENTRAL SKELETALon 04-13-2023 DEXA SCAN CENTRAL SKELETAL DEXA SCAN CENTRAL SKELETAL CLINICAL INFORMATION: Postmenopausal. TECHNIQUE: Dual X-ray Absorptiometry (DXA) was performed. COMPARISON: No relevant prior studies available. FINDINGS: LUMBAR SPINE (L1-L4): BMD is 1.410 gm/cm2. T-score is 1.7. LEFT FEMORAL NECK: BMD is 1.137 gm/cm2. T-score is 0.7. LEFT TOTAL FEMUR: BMD is 1.216 gm/cm2. T-score is 1.7. RIGHT FEMORAL NECK: BMD is 1.162 gm/cm2. T-score is 0.9. RIGHT TOTAL FEMUR: BMD is 1.211 gm/cm2. T-score is 1.6. The estimated 10-year probability for a major osteoporotic fracture (utilizing FRAX) is 3.7% and for a hip fracture is 0.0%. IMPRESSION: The exam is considered to be normal by the National Osteoporosis Foundation guidelines. WHO CLASSIFICATION: Normal: T-score -1.0 or above Osteopenia: T-score -1.1 to < 2.5 Osteoporosis: T-score -2.5 or lower Secondary causes of bone loss should be evaluated if clinically indicated since the etiology of low BMD cannot be determined by BMD measurement alone. The current National Osteoporosis Foundation guide recommends treating patients with FRAX ten year risk scores of greater than or equal to 3% for hip fracture or greater than or equal to 20% for major osteoporotic fracture, to reduce their fracture risk. 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 COMPARISON: 06/17/2020, 09/05/2017 TECHNIQUE: Bilateral digital tomosynthesis MLO and CC views of the breasts were obtained, with creation of synthetic 2D views. Computer aided detection was utilized. FINDINGS: The breasts are almost entirely fatty. There are no suspicious masses, calcifications, or areas of architectural distortions. IMPRESSION: No mammographic evidence of malignancy. BI-RADS: BI-RADS 1 - Negative Recommendation: Routine screening mammogram in 1 year. Finalized by Nalini Rooney MD on 04/13/2023 3:23 PM 1 a MAMM 1 YR Normal [facility] PAP ACOG PANEL 2: 30 to 65on 10-21-2018 Age Gdln ACOG Testing 30-65 Normal [facility] Comment on above: Performed By: #### 4 [id number] #### [facility] [address] [place] [address] Tatiana Gonzalez DIAGNOSIS: Comment Normal [facility] Comment on above: Result Comment: NEGA TIVE FOR INTRAEPITHELIAL LESION OR MALIGNANCY. REACTIVE CELLULAR CHANGES AND/OR REPAIR ARE PRESENT. FUNGAL ORGANISMS MORPHOLOGICALLY CONSISTENT WITH RUBA SPECIES ARE PRESENT. Performed at: WB Performed By: #### 4 [id number] #### [facility] [address] [place] [address] Tatiana Gonzalez Electronically signed by: Comment Normal [facility] Comment on above: Result Comment: Nataliia Silva MD, Pathologist Performed at: WB Performed By: #### 4 [id number] #### [facility] [address] [place] [address] Tatiana Gonzalez HPV Aptima Negative Normal Negative [facility] Comment on above: Result Comment: This test was developed and its performance characteristics determined by [facility]. It has not been cleared or approved by the Food and Drug Administration. This test detects fourteen high-risk HPV types (16/18/31/33/35/39/45/ 51/52/56/58/59/66/68) without differentiation. Performed at: =G Performed By: #### 4 [id number] #### [facility] [address] [place] [address] Tatiana Gonzalez Methodology: Comment Normal [facility] Comment on above: Result Comment: This liquid based SurePath(R) pap test was screened with the assistance of an image guided system. Performed at: WB Performed By: #### 4 [id number] #### [facility] [address] [place] [address] Tatiana Gonzalez Note: Comment Normal [facility] Comment on above: Result Comment: The Pap smear is a screening test designed to aid in the detection of premalignant and malignant conditions of the uterine cervix. It is not a diagnostic procedure and should not be used as the sole means of detecting cervical cancer. Both false-positive and false-negative reports do occur. . Performed at: WB Performed By: #### 4 [id number] #### [facility] [address] [address] Tatiana Gonzalez Pathologist Provided ICD10 Comment Normal [facility] Comment on above: Result Comment: R87. 5 Performed at: WB Performed By: #### 4 [id number] #### [facility] [address] [place] [address] Tatiana Gonzalez Performed by: Comment Normal [facility] Comment on above: Result Comment: Jong Montaño, Animal Nutrition Teacher (ASCP) Performed at: WB Performed By: #### 4 [id number] #### [facility] [address] [place] [address] Tatiana Gonzalez Specimen adequacy: Comment Normal [facility] Comment on above: Result Comment: Sati sfactory for evaluation. No endocervical component is identified. Areas of partially obscuring inflammatory exudate are present. Performed at: WB Performed By: #### 4 [id number] #### [facility] [address] [place] [address] Tatiana Gonzalez . . Normal [facility] Comment on above: Result Comment: Perf ormed at: WB Performed By: #### 4 [id number] #### [facility] [address] [place] [address] Tatiana Gonzalez Creatinine w/GFRon 8 (cont.) Normal [facility] Comment on above: Result Comment: Aver age GFR for 40-49 years old: 99 mL/min/1.73sq mChronic Kidney Disease: <60 mL/min/1.73sq mKidney failure: <15 mL/min/1.73sq meGFR calculated using average adult body mass. Additional eGFR calculator available at:[email or web address] at [facility] [address] [place] [address] Performed By: #### C REG ####[facility] [place] [address]3523 Creatinine 0.59 mg/dL Normal 0.50-0.90 [facility] Comment on above: Performed By: #### C REG ####[facility] [place] [address] 59456 eGFR (non-black) mL/min/{1.73_m2} Normal >60 [facility] Comment on above: Performed By: #### C REG ####[address] [address] Staging: NOT REPORTED Normal [facility] Comment on above: Performed By: #### C REG ####[facility] [place] [address] Vital Signs Date Time Vital Sign Value Performing Clinician Facility 02-15-2024 07:18-0500 Body height 165.1 cm [facility] 02-15-2024 07:18-0500 Body mass index (BMI) [Ratio] 37 kg/m2 [facility] 02-15-2024 07:18-0500 Body weight 100.86 kg [facility] 02-15-2024 07:18-0500 Diastolic blood pressure 66 mm[Hg] [facility] 02-15-2024 07:18-0500 Heart rate 66 /min [facility] 02-15-2024 07:18-0500 Respiratory rate 18 /min [facility] 02-15-2024 07:18-0500 SaO2% (BldA) [Mass fraction] 100 % [facility] 01-03-2025 07:18-0500 Systolic blood pressure 130 mm[Hg] [facility] 12-14-2023 10:33-0400 Body height 165.1 cm [facility] 12-14-2023 10:33-0400 Body mass index (BMI) [Ratio] 35.9 kg/m2 [facility] 12-14-2023 10:33-0400 Body weight 98.06 kg [facility] 12-14-2023 10:33-0400 Diastolic blood pressure 73 mm[Hg] [facility] 12-14-2023 10:33-0400 Heart rate 69 /min [facility] 12-14-2023 10:33-0400 Respiratory rate 18 /min [facility] 12-14-2023 10:33-0400 SaO2% (BldA) [Mass fraction] 100 % [facility] 12-14-2023 10:33-0400 Systolic blood pressure 118 mm[Hg] [facility] 10-31-2023 13:48-0400 Body height 165.1 cm [facility] 10-31-2023 13:48-0400 Body mass index (BMI) [Ratio] 35.5 kg/m2 [facility] 10-31-2023 13:48-0400 Body weight 96.84 kg [facility] 10-31-2023 13:48-0400 Diastolic blood pressure 85 mm[Hg] [facility] 10-31-2023 13:48-0400 Heart rate 70 /min [facility] 10-31-2023 13:48-0400 Respiratory rate 18 /min [facility] 10-31-2023 13:48-0400 SaO2% (BldA) [Mass fraction] 100 % [facility] 10-31-2023 13:48-0400 Systolic blood pressure 128 mm[Hg] [facility] 09-07-2023 09:11-0400 Body height 165.1 cm [facility] 09-07-2023 09:11-0400 Body mass index (BMI) [Ratio] 35 kg/m2 [facility] 09-07-2023 09:11-0400 Body weight 95.48 kg [facility] 09-07-2023 09:11-0400 Diastolic blood pressure 65 mm[Hg] [facility] 09-07-2023 09:11-0400 Heart rate 71 /min [facility] 09-07-2023 09:11-0400 Respiratory rate 18 /min [facility] 09-07-2023 09:11-0400 SaO2% (BldA) [Mass fraction] 99 % [facility] 09-07-2023 09:11-0400 Systolic blood pressure 100 mm[Hg] [facility] 07-27-2023 08:35-0400 Body height 165.1 cm [facility] 07-27-2023 08:35-0400 Body mass index (BMI) [Ratio] 35.4 kg/m2 [facility] 07-27-2023 08:35-0400 Body weight 96.64 kg [facility] 07-27-2023 08:35-0400 Diastolic blood pressure 83 mm[Hg] [facility] 07-27-2023 08:35-0400 Heart rate 74 /min [facility] 07-27-2023 08:35-0400 Respiratory rate 18 /min [facility] 07-27-2023 08:35-0400 SaO2% (BldA) [Mass fraction] 94 % [facility] 07-27-2023 08:35-0400 Systolic blood pressure 122 mm[Hg] [facility] 06-08-2023 08:26-0400 Body height 165.1 cm [facility] 06-08-2023 08:26-0400 Body mass index (BMI) [Ratio] 35.3 kg/m2 [facility] 06-08-2023 08:26-0400 Body weight 96.24 kg [facility] 06-08-2023 08:26-0400 Diastolic blood pressure 78 mm[Hg] [facility] 06-08-2023 08:26-0400 Heart rate 66 /min [facility] 06-08-2023 08:26-0400 Respiratory rate 18 /min [facility] 06-08-2023 08:26-0400 SaO2% (BldA) [Mass fraction] 100 % [facility] 06-08-2023 08:26-0400 Systolic blood pressure 122 mm[Hg] [facility] 04-13-2023 08:05-0500 Body height 165.1 cm [facility] 04-13-2023 08:05-0500 Body mass index (BMI) [Ratio] 37.1 kg/m2 [facility] 04-13-2023 08:05-0500 Body weight 101.23 kg [facility] 04-13-2023 08:05-0500 Diastolic blood pressure 74 mm[Hg] [facility] 04-13-2023 08:05-0500 Heart rate 70 /min [facility] 04-13-2023 08:05-0500 Respiratory rate 18 /min [facility] 04-13-2023 08:05-0500 SaO2% (BldA) [Mass fraction] 97 % [facility] 04-13-2023 08:05-0500 Systolic blood pressure 114 mm[Hg] [facility] 03-08-2023 09:00-0500 Body height 165.1 cm Hector Turner Other [facility] [employer] Other 03-08-2023 09:00-0500 Body mass index (BMI) [Ratio] 37.57 kg/m2 Hector Turner Other [employer] [facility] [employer] Other 03-08-2023 09:00-0500 Body weight 102.42 kg Hector Turner Other [employer] Other 03-08-2023 09:00-0500 Diastolic blood pressure 80 mm[Hg] Hector Turner Other [employer] Other 03-08-2023 09:00-0500 Respiratory rate 18 /min Hector Turner Other [employer] Other 03-08-2023 09:00-0500 SaO2% (BldA) [Mass fraction] 99 % Hector Pachecodiff Other [employer] Other 03-08-2023 09:00-0500 Systolic blood pressure 124 mm[Hg] Hectorjanina Pachecodiff Other [employer] Other 01-03-2023 09:00-0500 Body height 165.1 cm Hector Pachecodiff Other [employer] Other 01-03-2023 09:00-0500 Body mass index (BMI) [Ratio] 36.66 kg/m2 Hector Pachecodiff Other [employer] Other 01-03-2023 09:00-0500 Body weight 99.93 kg Hector Pachecodiff Other [employer] Other 01-03-2023 09:00-0500 Diastolic blood pressure 72 mm[Hg] Hectorjanina Pachecodiff Other [employer] Other 01-03-2023 09:00-0500 Respiratory rate 18 /min Hector Yue Other [employer] Other 01-03-2023 09:00-0500 SaO2% (BldA) [Mass fraction] 100 % Hectorjanina Pachecodiff Other [employer] Other 01-03-2023 09:00-0500 Systolic blood pressure 125 mm[Hg] Hectorjanina Pachecodiff Other [employer] Other 11-10-2022 08:00-0400 Body height 165.1 cm Hector Turner Other [employer] Other 11-10-2022 08:00-0400 Body mass index (BMI) [Ratio] 35.51 kg/m2 Hector Turner Other [employer] Other 11-10-2022 08:00-0400 Body weight 96.8 kg Hector Pachecodiff Other [employer] Other 11-10-2022 08:00-0400 Diastolic blood pressure 78 mm[Hg] Hector Pachecodiff Other [employer] Other 11-10-2022 08:00-0400 Respiratory rate 18 /min Hector Pachecodiff Other [employer] Other 11-10-2022 08:00-0400 SaO2% (BldA) [Mass fraction] 98 % Hector Pachecodiff Other [employer] Other 11-10-2022 08:00-0400 Systolic blood pressure 123 mm[Hg] Hector Pachecodiff Other [employer] Other 08-16-2022 09:00-0400 Body height 165.1 cm Hector Pachecodiff Other [employer] Other 08-16-2022 09:00-0400 Body mass index (BMI) [Ratio] 32.98 kg/m2 Hector Pachecodiff Other [employer] Other 08-16-2022 09:00-0400 Body weight 89.9 kg Hector Pachecodiff Other [employer] Other 08-16-2022 09:00-0400 Diastolic blood pressure 70 mm[Hg] Hector Turner Other [employer] Other 08-16-2022 09:00-0400 Respiratory rate 18 /min Hector Turner Other [employer] Other 08-16-2022 09:00-0400 SaO2% (BldA) [Mass fraction] 98 % Hector Pachecodiff Other [employer] Other 08-16-2022 09:00-0400 Systolic blood pressure 103 mm[Hg] Hector Turner Other [employer] Other 06-16-2022 10:45-0400 Body height 165.1 cm Hector Turner Other [employer] Other 06-16-2022 10:45-0400 Body mass index (BMI) [Ratio] 33.26 kg/m2 Hector Turner Other [employer] Other 06-16-2022 10:45-0400 Body weight 90.67 kg Hector Pachecodiff Other [employer] Other 06-16-2022 10:45-0400 Diastolic blood pressure 67 mm[Hg] Hector Turner Other [employer] Other 06-16-2022 10:45-0400 Respiratory rate 18 /min Hector Turner Other [employer] Other 06-16-2022 10:45-0400 Systolic blood pressure 100 mm[Hg] Hector Pachecodiff Other [employer] Other 04-13-2022 09:30-0500 Body height 165.1 cm Hector Pachecodiff Other [employer] Other 04-13-2022 09:30-0500 Body mass index (BMI) [Ratio] 33.06 kg/m2 Hector Pachecodiff Other [employer] Other 04-13-2022 09:30-0500 Body weight 90.13 kg Hector Pachecodiff Other [employer] Other 04-13-2022 09:30-0500 Diastolic blood pressure 85 mm[Hg] Hector Turner Other [employer] Other 04-13-2022 09:30-0500 Respiratory rate 18 /min Hector Turner Other [employer] Other 04-13-2022 09:30-0500 SaO2% (BldA) [Mass fraction] 99 % Hector Turner Other [employer] Other 04-13-2022 09:30-0500 Systolic blood pressure 124 mm[Hg] Hector Turner Other [employer] Other 03-30-2022 08:15-0500 Body height 165.1 cm Fina Fitt Other [employer] Other 03-30-2022 08:15-0500 Body mass index (BMI) [Ratio] 33.86 kg/m2 Fina Fitt Other [employer] Other 03-30-2022 08:15-0500 Body weight 92.31 kg Fina Fitt Other [employer] Other 02-23-2022 09:45-0500 Body height 165.1 cm Hector Yue Other [employer] Other 02-23-2022 09:45-0500 Body mass index (BMI) [Ratio] 34.38 kg/m2 Hectorjanina Pachecodiff Other [employer] Other 02-23-2022 09:45-0500 Body weight 93.71 kg Hector Yue Other [employer] Other 02-23-2022 09:45-0500 Diastolic blood pressure 70 mm[Hg] Hector Turner Other [employer] Other 02-23-2022 09:45-0500 Respiratory rate 18 /min Hectorjanina Pachecodiff Other [employer] Other 02-23-2022 09:45-0500 SaO2% (BldA) [Mass fraction] 100 % Hectorjanina Turner Other [employer] Other 02-23-2022 09:45-0500 Systolic blood pressure 110 mm[Hg] Hector Turner Other [employer] Other 02-08-2022 10:00-0500 Body height 165.1 cm Fina Fitt Other [employer] Other 01-11-2022 08:30-0500 Body height 165.1 cm Hector Turner Other [employer] Other 01-11-2022 08:30-0500 Body mass index (BMI) [Ratio] 35.86 kg/m2 Hector Turner Other [employer] Other 01-11-2022 08:30-0500 Body weight 97.75 kg Hector Turner Other [employer] Other 01-11-2022 08:30-0500 Diastolic blood pressure 83 mm[Hg] Hector Pachecodiff Other [employer] Other 01-11-2022 08:30-0500 Respiratory rate 18 /min Hector Pachecodiff Other [employer] Other 01-11-2022 08:30-0500 SaO2% (BldA) [Mass fraction] 99 % Hector Pachecodiff Other [employer] Other 01-11-2022 08:30-0500 Systolic blood pressure 144 mm[Hg] Hector Pachecodiff Other [employer] Other Encounters Encounter Date Encounter Type Care Provider Facility Start: 02-15-2024 End: 02-15-2024 [facility] Work Phone: Start: 02-15-2024 End: 02-15-2024 Patient encounter procedure [facility] Work Phone: Start: 12-14-2023 End: 12-14-2023 ambulatory [facility] Work Phone: Start: 12-14-2023 End: 12-14-2023 Patient encounter procedure [facility] Work Phone: Start: 10-31-2023 End: 10-31-2023 ambulatory [facility] Work Phone: Start: 10-31-2023 End: 10-31-2023 Patient encounter procedure [facility] Work Phone: Start: 09-07-2023 End: 09-07-2023 ambulatory [facility] Work Phone: Start: 09-07-2023 End: 09-07-2023 Patient encounter procedure [facility] Physician [facility] Work Phone: Start: 09-06-2023 Non-patient / Non-visit [facility] Physician [facility] [facility] Work Phone: Start: 07-30-2023 ambulatory Atilio Aishwarya Faci lity:[facility] Start: 07-30-2023 Non-patient / Non-visit [facility] Physician [facility] Work Phone: Start: 07-29-2023 End: 07-30-2023 Emergency department patient visit ATILIO Horan [facility] Start: 07-27-2023 End: 07-27-2023 ambulatory [facility] Work Phone: Start: 07-27-2023 End: 07-27-2023 Patient encounter procedure [facility] Physician [facility] Work Phone: Start: 06-08-2023 End: 06-08-2023 ambulatory [facility] Work Phone: Start: 06-08-2023 End: 06-08-2023 Patient encounter procedure [facility] Physician [facility] Work Phone: Start: 05-20-2023 End: 05-21-2023 Emergency department patient visit JOHNNIE Jakob LOPEZ [facility] Start: 04-13-2023 End: 04-13-2023 ambulatory [facility] Start: 04-13-2023 End: 04-13-2023 Patient encounter procedure [facility] Physician [facility] Work Phone: Start: 04-04-2023 Non-patient / Non-visit [facility] Physician [facility] Work Phone: Start: 04-02-2023 End: 04-02-2023 ambulatory DANIELLE JUAREZ Not Available Start: 03-08-2023 Follow-up encounter Hector ru[facility] Start: 03-08-2023 End: 03-08-2023 ambulatory Hector Turner [facility] [employer] Other Start: 01-03-2023 End: 01-03-2023 ambulatory Hector Turner Other [employer] Other Start: 01-03-2023 Follow-up encounter Hector ru[facility] Start: 01-03-2023 Telephone encounter Hector ruiz [facility] Start: 11-10-2022 End: 11-10-2022 ambulatory Hector Turner Other [facility] [employer] Other Start: 11-10-2022 Follow-up encounter Hector ruiz [facility] Start: 09-25-2022 End: 09-25-2022 ambulatory Hector Turner Other [facility] [employer] Other Start: 09-25-2022 Telephone encounter Hector ruiz [facility] Start: 09-18-2022 End: 09-18-2022 ambulatory Hector Turner Other [facility] [employer] Other Start: 09-18-2022 Telephone encounter Hector ruiz [facility] Start: 08-16-2022 End: 08-16-2022 ambulatory Hector Turner Other [employer] Other Start: 08-16-2022 Follow-up encounter Hector ruiz [facility] Start: 06-16-2022 End: 06-16-2022 ambulatory Hector Turner Other [employer] Other Start: 06-16-2022 Follow-up encounter Hector ruiz [facility] Start: 04-13-2022 End: 04-13-2022 ambulatory Hector Turner Other [employer] Other Start: 04-13-2022 Follow-up encounter Hector ruiz [facility] Start: 03-30-2022 ([facility] RD FU) [facility] F/ U Registerd Appraiser Auditor Fina Flores [facility] Start: 03-30-2022 End: 03-30-2022 ambulatory Fina Fitt Other [employer] Other Start: 03-30-2022 Telephone encounter Hector ruiz [facility] Start: 03-03-2022 End: 03-03-2022 ambulatory Hector Turner Other [employer] Other Start: 03-03-2022 Telephone encounter Hector ruiz [facility] Start: 02-23-2022 End: 02-23-2022 ambulatory Hector Turner Other [employer] Other Start: 02-23-2022 Follow-up encounter Hector ruiz [facility] Start: 02-08-2022 End: 02-08-2022 ambulatory Fina Anoopt Other [employer] Other Start: 02-08-2022 IBT FOR OBESITY GROU P 2-10 30M Finajonnie Flores [facility] Start: 02-08-2022 Telephone encounter Hector ruiz [facility] Start: 01-11-2022 End: 01-11-2022 ambulatory Hector Turner Other [employer] Other Start: 01-11-2022 Nutrition therapy Hector Yue [facility] Start: 10-15-2018 End: 10-15-2018 Patient encounter procedure AAKASH HAZEL Facility:[facility] Start: 02-22-2017 End: 02-25-2017 Evaluation and management of inpatient KUL B PAVON [facility] Start: 05-02-2012 End: 05-02-2012 Telephone encounter Dejah Hines Work Phone: Colorectal Surgery Procedures Date Procedure Procedure Detail Performing Clinician Start: 02-25-2017 DISCHARGE PATIENT KUL G UPTA Start: 02-25-2017 RESPIRATORY CARE EVALUATION AND TREAT KUL PAVON Start: 02-25-2017 POC GLUCOSE FINGERSTICK KUL PAVON Start: 02-25-2017 POCT GLUCOSE KUL PAVON Start: 02-24-2017 RESPIRATORY CARE EVALUATION AND TREAT KUL PAVON Start: 02-24-2017 POC GLUCOSE FINGERSTICK KUL PAVON Start: 02-24-2017 POCT GLUCOSE KUL PAVON Start: 02-23-2017 RESPIRATORY CARE EVALUATION AND TREAT KUL PAVON Start: 02-23-2017 POCT GLUCOSE KUL PAVON Start: 02-22-2017 FULL CODE KUL PAVON Start: 02-22-2017 CREATININE, SERUM KUL G UPTA Start: 02-22-2017 RESPIRATORY CARE EVALUATION AND TREAT KUL PAVON Start: 02-22-2017 DIET CARB CONTROL KUL G UPTA Start: 02-22-2017 IP CONSULT TO HISTOR Y AND PHYSICAL KUL PAVON Start: 02-22-2017 POCT GLUCOSE KUL PAVON Start: 02-22-2017 PATIENT STATUS (FROM ED OR OR/PROCEDURAL) KUL PAVON History of appendectomy History of append ectomy History of cholecystectomy S/P cholecystectomy History of thyroidectomy History of thyro idectomy Comment on above: 08/13/12 Plan of Treatment Date Care Activity Detail Author Start: 10-13-2020 Influenza vaccination INFLUENZA (Sea son Ended) [facility] Start: 07-11-2015 DIABETES SCREEN DIABETES SCREEN [facility] Start: 07-11-2015 LIPID SCREEN LIPID SCREEN [facility] Start: 2010 Mammography MAMMOGRAM [facility] Start: 2000 HPV TESTING HPV TESTING [facility] Start: 07-11-1991 PAP TESTING PAP TESTING [facility] Start: 1989 Urine microalbumin profile DTAP,TDAP ,TD (1 - Tdap) [facility] Start: 1988 HEPATITIS C SCREENING HEPATITIS C [place] [facility] Start: 1988 HIV SCREENING HIV SCREENING [facility] Start: 1982 Adult depression scr eening assessment DEPRESSION SCREENING [facility] Immunizations Immunization Date Immunization Notes Care Provider Fa fredty 11-14-2010 influenza virus vacc ine, whole virus Dejah Hines Work Phone: [facility] 12-01-2009 pneumococcal polysaccharide vaccine, 23 valent [facility] Work Phone: [facility] Payers Date Payer Category Payer Self-pay 1999 Unknown MMO [employer] [id number] 1999-2018 PPO [id number] 1970 Unknown [id number] 1970 Unknown [id number] 1970 Unknown [id number] 1970 Unknown [id number] 1970 Unknown [id number] 1970 Unknown [id number] 1970 Unknown [id number] 1970 Unknown [id number] 1959 Unknown [id number] Unknown [id number] Unknown [id number] Social History Date Type Detail Facility Start: 04-30-2012 End: 12-02-2014 Tobacco smoking status NHIS Never smoker [facility] Start: 04-30-2012 Tobacco use and exposure Never used [facility] Work Phone: Start: 04-30-2012 Alcohol intake Current non-dr compatibility test engineer of alcohol (finding) [facility] Start: 1970 Sex Assigned At Not on file [facility] Sex Assigned At Sex Assigned At [facility] [employer] Other Start: 1970 Sex Assigned At Female F [facility] Start: 02-15-2024 Sex Female (finding) [facility] Medical Equipment Procedure Code Equipment Code Equipment Origin al Text Equipment Identifier Dates Mesh Srg Pariete x 12cm 12cm - [id number] Start: 05-01-2012 Comment on above: Description: pariete x mesh, optimized composite. Start: 07-28-2014 blood sugar diagnostic (OneTouch Verio test strips) Start: 04-04-2023 lancets Start: 04-04-2023 blood sugar diagnostic (OneTouch Verio test strips) Start: 04-04-2023 lancets Start: 04-04-2023 blood sugar diagnostic (OneTouch Verio test strips) Start: 04-04-2023 lancets Start: 04-04-2023 blood sugar diagnostic (OneTouch Verio test strips) Start: 04-04-2023 lancets Start: 04-04-2023 blood sugar diagnostic (OneTouch Verio test strips) Start: 04-04-2023 lancets Start: 04-04-2023 blood sugar diagnostic (OneTouch Verio test strips) Start: 04-04-2023 lancets Start: 04-04-2023 blood sugar diagnostic (OneTouch Verio test strips) Start: 04-04-2023 lancets Start: 04-04-2023 Clinical Notes 12-07-2010 to 12-14-2023 Note Date & Type Note Facility 12-14-2023 Evaluation note Authored February 15, 2024 7:41am Highest weight: 335 lbs. She is down 112.4bs. Start weight: 215.5 lbs. She is up 7.1lbs today with a weight of 222.6 lbs. She is up 6.3 lbs. since last visit on 12/14/2023. Starting Date: 01-11-2022. She was taking Ozempic 0.25 mg x 5 doses before starting the program. We had increased her to full dose. Program start weight 215.5 pounds. She is up 7.1 lbs. Phentermine start date 03/08/2023. Phentermine start weight 225.8 pounds. Down 3.2 lbs. 1. Abnormal weight gain. She has a strong family history of obesity with her dad being about 400 pounds, mom about 350 pounds, but obesity is strong on both sides of the family. She has a strong family history of type II diabetes in both her maternal grandmother dad, and in multiple paternal and maternal aunts and uncles. 2. Obesity-Weight maintenance/greater than a 5% weight loss/responder since adding phentermine 37.5 mg to her Ozempic 2 mg. She has some occasional GI side effects but she feels that they are tolerable with Ozempic and phentermine. She has not wanted to stop or cut back the doses. She feels phentermine has given her more energy, improved her mood and has allowed her to be much more active. She is still eating healthy [employer]. She had previously had some significant recent weight regain which she previously thought may have been related to her depression medications which are being adjusted. We could consider adding Topamax the future as she has had a tubal ligation if okay with her psychiatric prescriber. I have recommended she consider bariatric surgery as her weight is such an mental health issue despite counseling. She does not want to consider bariatric surgery and she is metabolically healthy now. She has felt like people are rooting against her to gain her weight back. I have discussed multiple times with her that she should not jeannine the scale/scale goals and jeannine good health. She is following a very healthy lifestyle. We have discussed multiple times, in detail, the brains regulation of weight. She is doing good on Ozempic 2 mg for her diabetes and to help with appetite control and long-term weight loss, but has had weight regain with going down to smaller doses. She also takes 1000 mg of metformin for her diabetes and PCOS. She should continue to treat with long-term lifestyle changes of improved nutrition, increased exercise and activity, stress reduction, adequate sleep and behavioral modification versus short-term dieting. Before starting the program the biggest reasons for weight struggles include depression, stress eating, health issues, medications I am or have taken, work stress, poor sleep, Family weight issues , mom, dad, grandparents, boredom eater. Exercise before starting the program: yes, strength, cardio, stretch, bike. She is now strength training, walking and dance cardio 5 to 6 days a week. Her weight was once up to 335 pounds. She was very successful recently with Noom, doing the [employer] body portion fix, completely given up gluten and dairy, eating a lot vegetables but does still eat some meat and trying to eat healthy whole foods over the last couple years and got down to 183 pounds before the school year. She is on a B12 supplement. She previously had a very stressful school year. She has again gained back a significant amount of weight almost up to her start weight. She notes a lot of people have told her she could not do it. She felt it was her fault she had gained the weight back, because she did not understand brains regulation of weight. I discussed with her how big of success she is and the risk of having unrealistic goals. She must rest concentrate on being as healthy as she can. Her PCP just started her on Ozempic 0.25 mg before he sent her to our program and she already started to feel full quicker without any side effects. Her insurance covers Ozempic since she had been diabetic. She has felt much better since she lost all the weight and has been eating healthier and exercising she notes she rarely gets sick now. She sees an cycle repairer and she had -24-hour cortisol studies in the past. She has a psychiatrist in [facility] who treats her depression but her PHQ-9 was 15 with starting the program. She does take 200 mg of trazodone to help with sleep at night but still has some nocturnal awakening. She carries a past diagnosis of diabetes when she had significant weight issues but her last A1c is down to 5.7 with her significant lifestyle change before starting the program. We will continue Ozempic to help with weight maintenance and possibly further weight loss. 3. Type 2 [id number] with A1c of 5.2 10/2023 with addition of Ozempic and starting our program. She will continue first-line treatment with lifestyle changes, decrease simple sweets and starches, increase exercise, Ozempic, metformin and weight loss. She was on Januvia and metformin 1000 mg daily before starting the program. We stopped Januvia since she is on Ozempic. 4. PCOS-on metformin with positive acanthosis nigracans. 5. Hypertension-well controlled on lisinopril. Continue to treat with a low-salt diet, decreased processed and restaurant foods, healthy lifestyle changes and achieve long-term weight loss. 6. Obstructive sleep apnea-she notes that since she lost so much weight she was rechecked and does not require CPAP as long as she can keep her weight loss off. 7. Depression-she follows up with psychiatry and is on Prestiq. She is getting frequent counseling. She has strong leobardo. She notes she was hospitalized in the past for depression. She is depressed about her weight regain. 8. Insomnia-controlled with good sleep hygiene and trazodone 200 mg at at bedtime. 9. GERD-she is had a slight increase with starting Ozempic. I gave her handout on antireflux diet we will also treat with weight loss. She had been on omeprazole in the past but did not think she needed it now. We discussed step medical therapy if her symptoms worsen. 10. Status post colectomy she notes she was on a protein sparing modified fast from the [facility] and had such significant constipation she did up losing colonic function and had to have a colectomy and reattachment. She notes her stools are normally loose now. 11. 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 12. Metabolic syndrome-treat with long-term healthy lifestyle changes, behavioral changes, healthy nutritional changes, increased activity and exercise and achieve long-term weight loss. Follow up with me in 6-8 weeks. New labs needed: She will continue regular metabolic blood work follow-up 09/2024. She should continue at least every 6-month A1c with her PCP since she has type 2 diabetes. She will need her B12 followed up yearly on metformin. Up-to-date. Author Hector Turner [facility] Authored December 14, 2023 1 0:11am Assessment: Highest weight: 335 lbs. She is down 118.7lbs. Start weight: 215.5 lbs. She is down .8 lbs today with a weight of 216.3 lbs. She is up 2.5 lbs. since last visit on 10/31/23. Starting Date: 01-11-2022. She was taking Ozempic 0.25 mg x 5 doses before starting the program. We had increased her to full dose. Program start weight 215.5 pounds. She is down 1.7 lbs. Phentermine start date 03/08/2023. Phentermine start weight 225.8 pounds. Down 9.5 lbs. 1. Abnormal weight gain. She has a strong family history of obesity with her dad being about 400 pounds, mom about 350 pounds, but obesity is strong on both sides of the family. She has a strong family history of type II diabetes in both her maternal grandmother dad, and in multiple paternal and maternal aunts and uncles. 2. Obesity-Weight maintenance/greater than a 5% weight loss/responder since adding phentermine 37.5 mg to her Ozempic 2 mg. She has some occasional GI side effects but she feels that they are tolerable with Ozempic and phentermine. She has not wanted to stop or cut back the doses. She feels phentermine has given her more energy, improved her mood and has allowed her to be much more active. She is still eating healthy [employer]. She had previously had some significant recent weight regain which she previously thought may have been related to her depression medications which are being adjusted. We could consider adding Topamax the future as she has had a tubal ligation if okay with her psychiatric prescriber. I have recommended she consider bariatric surgery as her weight is such an mental health issue despite counseling. She does not want to consider bariatric surgery and she is metabolically healthy now. She has felt like people are rooting against her to gain her weight back. I have discussed multiple times with her that she should not jeannine the scale/scale goals and jeannine good health. She is following a very healthy lifestyle. We have discussed multiple times, in detail, the brains regulation of weight. She is doing good on Ozempic 2 mg for her diabetes and to help with appetite control and long-term weight loss, but has had weight regain with going down to smaller doses. She also takes 1000 mg of metformin for her diabetes and PCOS. She should continue to treat with long-term lifestyle changes of improved nutrition, increased exercise and activity, stress reduction, adequate sleep and behavioral modification versus short-term dieting. Before starting the program the biggest reasons for weight struggles include depression, stress eating, health issues, medications I am or have taken, work stress, poor sleep, Family weight issues , mom, dad, grandparents, boredom eater. Exercise before starting the program: yes, strength, cardio, stretch, bike. She is now strength training, walking and dance cardio 5 to 6 days a week. Her weight was once up to 335 pounds. She was very successful recently with No[employer], doing the [employer] body portion fix, completely given up gluten and dairy, eating a lot vegetables but does still eat some meat and trying to eat healthy whole foods over the last couple years and got down to 183 pounds before the school year. She is on a B12 supplement. She previously had a very stressful school year. She has again gained back a significant amount of weight almost up to her start weight. She notes a lot of people have told her she could not do it. She felt it was her fault she had gained the weight back, because she did not understand brains regulation of weight. I discussed with her how big of success she is and the risk of having unrealistic goals. She must rest concentrate on being as healthy as she can. Her PCP just started her on Ozempic 0.25 mg before he sent her to our program and she already started to feel full quicker without any side effects. Her insurance covers Ozempic since she had been diabetic. She has felt much better since she lost all the weight and has been eating healthier and exercising she notes she rarely gets sick now. She sees an cycle repairer and she had -24-hour cortisol studies in the past. She has a psychiatrist in [facility] who treats her depression but her PHQ-9 was 15 with starting the program. She does take 200 mg of trazodone to help with sleep at night but still has some nocturnal awakening. She carries a past diagnosis of diabetes when she had significant weight issues but her last A1c is down to 5.7 with her significant lifestyle change before starting the program. We will continue Ozempic to help with weight maintenance and possibly further weight loss. 3. Type 2 [id number] with A1c of 5.2 10/2023 with addition of Ozempic and starting our program. She will continue first-line treatment with lifestyle changes, decrease simple sweets and starches, increase exercise, Ozempic, metformin and weight loss. She was on Januvia and metformin 1000 mg daily before starting the program. We stopped Januvia since she is on Ozempic. 4. PCOS-on metformin with positive acanthosis nigracans. 5. Hypertension-well controlled on lisinopril. Continue to treat with a low-salt diet, decreased processed and restaurant foods, healthy lifestyle changes and achieve long-term weight loss. 6. Obstructive sleep apnea-she notes that since she lost so much weight she was rechecked and does not require CPAP as long as she can keep her weight loss off. 7. Depression-she follows up with psychiatry and is on Prestiq. She is getting frequent counseling. She has strong leobardo. She notes she was hospitalized in the past for depression. She is depressed about her weight regain. 8. Insomnia-controlled with good sleep hygiene and trazodone 200 mg at at bedtime. 9. GERD-she is had a slight increase with starting Ozempic. I gave her handout on antireflux diet we will also treat with weight loss. She had been on omeprazole in the past but did not think she needed it now. We discussed step medical therapy if her symptoms worsen. 10. Status post colectomy she notes she was on a protein sparing modified fast from the [facility] and had such significant constipation she did up losing colonic function and had to have a colectomy and reattachment. She notes her stools are normally loose now. 11. 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 12. Metabolic syndrome-treat with long-term healthy lifestyle changes, behavioral changes, healthy nutritional changes, increased activity and exercise and achieve long-term weight loss. Follow up with me in 6-8 weeks. New labs needed: She will continue regular metabolic blood work follow-up 09/2024. She should continue at least every 6-month A1c with her PCP since she has type 2 diabetes. She will need her B12 followed up yearly on metformin. Up-to-date. [facility] Work Phone: [phone] 701-137309-18-2024 Evaluation note* Author Hector Turner [facility] Authored October 31, 2023 2:48pm Highest weight: 335 lbs. She is down 121.2lbs. Start weight: 215.5 lbs. She is down 1.7 lbs today with a weight of 213.8 lbs. She is up 3.0 lbs. since last visit on 09/07/23. Starting Date: 01-11-2022. She was taking Ozempic 0.25 mg x 5 doses before starting the program. We had increased her to full dose. Program start weight 215.5 pounds. She is down 1.7 lbs. Phentermine start date 03/08/2023. Phentermine start weight 225.8 pounds. Down 12.0 lbs. 1. Abnormal weight gain. She has a strong family history of obesity with her dad being about 400 pounds, mom about 350 pounds, but obesity is strong on both sides of the family. She has a strong family history of type II diabetes in both her maternal grandmother dad, and in multiple paternal and maternal aunts and uncles. 2. Obesity-Weight maintenance/greater than a 5% weight loss/responder since adding phentermine 37.5 mg to her Ozempic 2 mg. She has some occasional GI side effects but she feels that they are tolerable with Ozempic. She does not want to stop or cut back the dose. Her only side effect from phentermine 37.5 mg is some dry mouth. She feels as given her more energy, improved her mood and has allowed her to be much more active. She is eating healthy [employer]. She had significant recent weight regain which she previously thought may have been related to her depression medications which are being adjusted. We could consider adding Topamax the future as she has had a tubal ligation if okay with her psychiatric prescriber. I have recommended she consider bariatric surgery as her weight is such an mental health issue despite counseling. She does not want to consider bariatric surgery and she is metabolically healthy now. She has felt like people are rooting against her to gain her weight back. I have discussed multiple times with her that she should not jeannine the scale/scale goals and jeannine good health. She is following a very healthy lifestyle. We have discussed multiple times, in detail, the brains regulation of weight. She is doing good on Ozempic 2 mg for her diabetes and to help with appetite control and long-term weight loss, but has had weight regain with going down to smaller doses. She also takes 1000 mg of metformin for her diabetes and PCOS. She should continue to treat with long-term lifestyle changes of improved nutrition, increased exercise and activity, stress reduction, adequate sleep and behavioral modification versus short-term dieting. Before starting the program the biggest reasons for weight struggles include depression, stress eating, health issues, medications I am or have taken, work stress, poor sleep, Family weight issues , mom, dad, grandparents, boredom eater. Exercise before starting the program: yes, strength, cardio, stretch, bike. She is now strength training, walking and dance cardio 5 to 6 days a week. Her weight was once up to 335 pounds. She was very successful recently with [employer], doing the [employer] body portion fix, completely given up gluten and dairy, eating a lot vegetables but does still eat some meat and trying to eat healthy whole foods over the last couple years and got down to 183 pounds before the school year. She is on a B12 supplement. She previously had a very stressful school year. She has again gained back a significant amount of weight almost up to her start weight. She notes a lot of people have told her she could not do it. She felt it was her fault she had gained the weight back, because she did not understand brains regulation of weight. I discussed with her how big of success she is and the risk of having unrealistic goals. She must rest concentrate on being as healthy as she can. Her PCP just started her on Ozempic 0.25 mg before he sent her to our program and she already started to feel full quicker without any side effects. Her insurance covers Ozempic since she had been diabetic. She has felt much better since she lost all the weight and has been eating healthier and exercising she notes she rarely gets sick now. She sees an cycle repairer and she had -24-hour cortisol studies in the past. She has a psychiatrist in [facility] who treats her depression but her PHQ-9 was 15 with starting the program. She does take 200 mg of trazodone to help with sleep at night but still has some nocturnal awakening. She carries a past diagnosis of diabetes when she had significant weight issues but her last A1c is down to 5.7 with her significant lifestyle change before starting the program. We will continue Ozempic to help with weight maintenance and possibly further weight loss. 3. Type 2 [id number] with A1c of 5.1 on 09/17/2023 with addition of Ozempic and starting our program. She will continue first-line treatment with lifestyle changes, decrease simple sweets and starches, increase exercise, Ozempic, metformin and weight loss. She was on Januvia and metformin 1000 mg daily before starting the program. We stopped Januvia since she is on Ozempic. 4. PCOS-on metformin with positive acanthosis nigracans. 5. Hypertension-well controlled on lisinopril. Continue to treat with a low-salt diet, decreased processed and restaurant foods, healthy lifestyle changes and achieve long-term weight loss. 6. Obstructive sleep apnea-she notes that since she lost so much weight she was rechecked and does not require CPAP as long as she can keep her weight loss off. 7. Depression-she follows up with psychiatry and is on Prestiq. She is getting frequent counseling. She has strong leobardo. She notes she was hospitalized in the past for depression. She is depressed about her weight regain. 8. Insomnia-controlled with good sleep hygiene and trazodone 200 mg at at bedtime. 9. GERD-she is had a slight increase with starting Ozempic. I gave her handout on antireflux diet we will also treat with weight loss. She had been on omeprazole in the past but did not think she needed it now. We discussed step medical therapy if her symptoms worsen. 10. Status post colectomy she notes she was on a protein sparing modified fast from the [facility] and had such significant constipation she did up losing colonic function and had to have a colectomy and reattachment. She notes her stools are normally loose now. 11. 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 12. Metabolic syndrome-treat with long-term healthy lifestyle changes, behavioral changes, healthy nutritional changes, increased activity and exercise and achieve long-term weight loss. Follow up with me in 8 weeks. New labs needed: She will continue regular metabolic blood work follow-up 09/2024. She should continue at least every 6-month A1c with her PCP since she has type 2 diabetes. She will need her B12 followed up yearly on metformin. Up-to-date. Author [facility] Authored December 14, 2023 1 0:53am Assessment: Highest weight: 335 lbs. She is down 118.7lbs. Start weight: 215.5 lbs. She is down .8 lbs today with a weight of 216.3 lbs. She is up 2.5 lbs. since last visit on 10/31/23. Starting Date: 01-11-2022. She was taking Ozempic 0.25 mg x 5 doses before starting the program. We had increased her to full dose. Program start weight 215.5 pounds. She is down 1.7 lbs. Phentermine start date 03/08/2023. Phentermine start weight 225.8 pounds. Down 9.5 lbs. 1. Abnormal weight gain. She has a strong family history of obesity with her dad being about 400 pounds, mom about 350 pounds, but obesity is strong on both sides of the family. She has a strong family history of type II diabetes in both her maternal grandmother dad, and in multiple paternal and maternal aunts and uncles. 2. Obesity-Weight maintenance/greater than a 5% weight loss/responder since adding phentermine 37.5 mg to her Ozempic 2 mg. She has some occasional GI side effects but she feels that they are tolerable with Ozempic. She does not want to stop or cut back the dose. Her only side effect from phentermine 37.5 mg is some dry mouth. She feels as given her more energy, improved her mood and has allowed her to be much more active. She is eating healthy [employer]. She had significant recent weight regain which she previously thought may have been related to her depression medications which are being adjusted. We could consider adding Topamax the future as she has had a tubal ligation if okay with her psychiatric prescriber. I have recommended she consider bariatric surgery as her weight is such an mental health issue despite counseling. She does not want to consider bariatric surgery and she is metabolically healthy now. She has felt like people are rooting against her to gain her weight back. I have discussed multiple times with her that she should not jeannine the scale/scale goals and jeannine good health. She is following a very healthy lifestyle. We have discussed multiple times, in detail, the brains regulation of weight. She is doing good on Ozempic 2 mg for her diabetes and to help with appetite control and long-term weight loss, but has had weight regain with going down to smaller doses. She also takes 1000 mg of metformin for her diabetes and PCOS. She should continue to treat with long-term lifestyle changes of improved nutrition, increased exercise and activity, stress reduction, adequate sleep and behavioral modification versus short-term dieting. Before starting the program the biggest reasons for weight struggles include depression, stress eating, health issues, medications I am or have taken, work stress, poor sleep, Family weight issues , mom, dad, grandparents, boredom eater. Exercise before starting the program: yes, strength, cardio, stretch, bike. She is now strength training, walking and dance cardio 5 to 6 days a week. Her weight was once up to 335 pounds. She was very successful recently with [employer], doing the [employer] body portion fix, completely given up gluten and dairy, eating a lot vegetables but does still eat some meat and trying to eat healthy whole foods over the last couple years and got down to 183 pounds before the school year. She is on a B12 supplement. She previously had a very stressful school year. She has again gained back a significant amount of weight almost up to her start weight. She notes a lot of people have told her she could not do it. She felt it was her fault she had gained the weight back, because she did not understand brains regulation of weight. I discussed with her how big of success she is and the risk of having unrealistic goals. She must rest concentrate on being as healthy as she can. Her PCP just started her on Ozempic 0.25 mg before he sent her to our program and she already started to feel full quicker without any side effects. Her insurance covers Ozempic since she had been diabetic. She has felt much better since she lost all the weight and has been eating healthier and exercising she notes she rarely gets sick now. She sees an cycle repairer and she had -24-hour cortisol studies in the past. She has a psychiatrist in [facility] who treats her depression but her PHQ-9 was 15 with starting the program. She does take 200 mg of trazodone to help with sleep at night but still has some nocturnal awakening. She carries a past diagnosis of diabetes when she had significant weight issues but her last A1c is down to 5.7 with her significant lifestyle change before starting the program. We will continue Ozempic to help with weight maintenance and possibly further weight loss. 3. Type 2 [id number] with A1c of 5.1 on 09/17/2023 with addition of Ozempic and starting our program. She will continue first-line treatment with lifestyle changes, decrease simple sweets and starches, increase exercise, Ozempic, metformin and weight loss. She was on Januvia and metformin 1000 mg daily before starting the program. We stopped Januvia since she is on Ozempic. 4. PCOS-on metformin with positive acanthosis nigracans. 5. Hypertension-well controlled on lisinopril. Continue to treat with a low-salt diet, decreased processed and restaurant foods, healthy lifestyle changes and achieve long-term weight loss. 6. Obstructive sleep apnea-she notes that since she lost so much weight she was rechecked and does not require CPAP as long as she can keep her weight loss off. 7. Depression-she follows up with psychiatry and is on Prestiq. She is getting frequent counseling. She has strong leobardo. She notes she was hospitalized in the past for depression. She is depressed about her weight regain. 8. Insomnia-controlled with good sleep hygiene and trazodone 200 mg at at bedtime. 9. GERD-she is had a slight increase with starting Ozempic. I gave her handout on antireflux diet we will also treat with weight loss. She had been on omeprazole in the past but did not think she needed it now. We discussed step medical therapy if her symptoms worsen. 10. Status post colectomy she notes she was on a protein sparing modified fast from the [facility] and had such significant constipation she did up losing colonic function and had to have a colectomy and reattachment. She notes her stools are normally loose now. 11. 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 12. Metabolic syndrome-treat with long-term healthy lifestyle changes, behavioral changes, healthy nutritional changes, increased activity and exercise and achieve long-term weight loss. Follow up with me in 8 weeks. New labs needed: She will continue regular metabolic blood work follow-up 09/2024. She should continue at least every 6-month A1c with her PCP since she has type 2 diabetes. She will need her B12 followed up yearly on metformin. Up-to-date. [facility] Work Phone: [phone]) [phone] Evaluation note* Author Hector Turner [facility] Authored September 07, 2023 9:50 am Highest weight: 335 lbs. She is down 124.2 lbs. Start weight: 215.5 lbs. She is down 4.7 lbs today with a weight of 210.8 lbs. She is down 2.3 lbs. since last visit on 07/27/23. Starting Date: 01-11-2022. She was taking Ozempic 0.25 mg x 5 doses before starting the program. We had increased her to full dose. Program start weight 215.5 pounds. She is down 4.7 lbs. Phentermine start date 03/08/2023. Phentermine start weight 225.8 pounds. Down 15.0 lbs. 1. Abnormal weight gain. She has a strong family history of obesity with her dad being about 400 pounds, mom about 350 pounds, but obesity is strong on both sides of the family. She has a strong family history of type II diabetes in both her maternal grandmother dad, and in multiple paternal and maternal aunts and uncles. 2. Obesity-Weight maintenance/greater than a 5% weight loss/responder since adding phentermine 37.5 mg to her Ozempic 2 mg. She has some GI side effects but she feels that they are tolerable with Ozempic. She does not want to stop or cut back the dose. I did offer her GI evaluation she does not feel it is necessary. She feels it is related to the Ozempic and she does not want to stop it. I did give her some extra needles and showed her how to titrate the dose back trying to improve her symptoms of short bouts of nausea and diarrhea. Her only side effect from phentermine 37.5 mg now is some dry mouth. She feels as given her more energy, improved her mood and has allowed her to be much more active. She is now eating healthy [employer]. She had significant recent weight regain which she previously thought may have been related to her depression medications which are being adjusted. We could consider adding Topamax the future as she has had a tubal ligation. I have recommended she consider bariatric surgery as her weight is such an mental health issue despite counseling. She does not want to consider bariatric surgery. She still feels like people are rooting against her to gain her weight back. I discussed multiple times with her that she should not jeannine the scale/scale goals and jeannine good health. She is following a very healthy lifestyle. We have discussed multiple times, in detail, the brains regulation of weight. She was doing good on Ozempic 2 mg for her diabetes and to help with appetite control and long-term weight loss, but has had weight regain with going down to smaller doses. She also takes 1000 mg of metformin for her diabetes and PCOS. She should continue to treat with long-term lifestyle changes of improved nutrition, increased exercise and activity, stress reduction, adequate sleep and behavioral modification versus short-term dieting. Before starting the program the biggest reasons for weight struggles include depression, stress eating, health issues, medications I am or have taken, work stress, poor sleep, Family weight issues , mom, dad, grandparents, boredom eater. Exercise before starting the program: yes, strength, cardio, stretch, bike. She is now strength training, walking and dance cardio 5 to 6 days a week. Her weight was once up to 335 pounds. She was very successful recently with [employer], doing the [employer] body portion fix, completely given up gluten and dairy, eating a lot vegetables but does still eat some meat and trying to eat healthy whole foods over the last couple years and got down to 183 pounds before the school year. She is on a B12 supplement. She previously had a very stressful school year. She has again gained back a significant amount of weight almost up to her start weight. She notes a lot of people have told her she could not do it. She felt it was her fault she had gained the weight back, because she did not understand brains regulation of weight. I discussed with her how big of success she is and the risk of having unrealistic goals. She must rest concentrate on being as healthy as she can. Her PCP just started her on Ozempic 0.25 mg before he sent her to our program and she already started to feel full quicker without any side effects. Her insurance covers Ozempic since she had been diabetic. She has felt much better since she lost all the weight and has been eating healthier and exercising she notes she rarely gets sick now. She sees an cycle repairer and she had -24-hour cortisol studies in the past. She has a psychiatrist in [facility] who treats her depression but her PHQ-9 was 15 with starting the program. She does take 200 mg of trazodone to help with sleep at night but still has some nocturnal awakening. She carries a past diagnosis of diabetes when she had significant weight issues but her last A1c is down to 5.7 with her significant lifestyle change before starting the program. We will continue Ozempic to help with weight maintenance and possibly further weight loss. 3. Type 2 [id number] with A1c of 4.9 with addition of Ozempic and starting our program. She will continue first-line treatment with lifestyle changes, decrease simple sweets and starches, increase exercise, Ozempic, metformin and weight loss. She was on Januvia and metformin 1000 mg daily before starting the program. We stopped Januvia since she is on Ozempic. 4. PCOS-on metformin with positive acanthosis nigracans. 5. Hypertension-well controlled on lisinopril even with adding phentermine. Continue to treat with a low-salt diet, decreased processed and restaurant foods, healthy lifestyle changes and achieve long-term weight loss. Monitor outside the office with adding phentermine. 6. Obstructive sleep apnea-she notes that since she lost so much weight she was rechecked and does not require CPAP as long as she can keep her weight loss off. 7. Depression-she follows up with psychiatry and is on Prestiq. She is getting frequent counseling. She has strong leobardo. She notes she was hospitalized in the past for depression. She is depressed about her weight regain. 8. Insomnia-controlled with good sleep hygiene and trazodone 200 mg at at bedtime. 9. GERD-she is had a slight increase with starting Ozempic. I gave her handout on antireflux diet we will also treat with weight loss. She had been on omeprazole in the past but did not think she needed it now. We discussed step medical therapy if her symptoms worsen. 10. Status post colectomy she notes she was on a protein sparing modified fast from the [facility] and had such significant constipation she did up losing colonic function and had to have a colectomy and reattachment. She notes her stools are normally loose now. 11. 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 12. Metabolic syndrome-treat with long-term healthy lifestyle changes, behavioral changes, healthy nutritional changes, increased activity and exercise and achieve long-term weight loss. Follow up with me in 8 weeks. New labs needed: She will continue regular metabolic blood work follow-up and A1c with her PCP. She will need her B12 followed up. Author Leona Gotti [facility] Authored October 31, 2023 2:12pm Highest weight: 335 lbs. She is down 121.2lbs. Start weight: 215.5 lbs. She is down 1.7 lbs today with a weight of 213.8 lbs. She is up 3.0 lbs. since last visit on 09/07/23. Starting Date: 01-11-2022. She was taking Ozempic 0.25 mg x 5 doses before starting the program. We had increased her to full dose. Program start weight 215.5 pounds. She is down 1.7 lbs. Phentermine start date 03/08/2023. Phentermine start weight 225.8 pounds. Down 12.0 lbs. 1. Abnormal weight gain. She has a strong family history of obesity with her dad being about 400 pounds, mom about 350 pounds, but obesity is strong on both sides of the family. She has a strong family history of type II diabetes in both her maternal grandmother dad, and in multiple paternal and maternal aunts and uncles. 2. Obesity-Weight maintenance/greater than a 5% weight loss/responder since adding phentermine 37.5 mg to her Ozempic 2 mg. She has some GI side effects but she feels that they are tolerable with Ozempic. She does not want to stop or cut back the dose. I did offer her GI evaluation she does not feel it is necessary. She feels it is related to the Ozempic and she does not want to stop it. I did give her some extra needles and showed her how to titrate the dose back trying to improve her symptoms of short bouts of nausea and diarrhea. Her only side effect from phentermine 37.5 mg now is some dry mouth. She feels as given her more energy, improved her mood and has allowed her to be much more active. She is now eating healthy [employer]. She had significant recent weight regain which she previously thought may have been related to her depression medications which are being adjusted. We could consider adding Topamax the future as she has had a tubal ligation. I have recommended she consider bariatric surgery as her weight is such an mental health issue despite counseling. She does not want to consider bariatric surgery. She still feels like people are rooting against her to gain her weight back. I discussed multiple times with her that she should not jeannine the scale/scale goals and jeannine good health. She is following a very healthy lifestyle. We have discussed multiple times, in detail, the brains regulation of weight. She was doing good on Ozempic 2 mg for her diabetes and to help with appetite control and long-term weight loss, but has had weight regain with going down to smaller doses. She also takes 1000 mg of metformin for her diabetes and PCOS. She should continue to treat with long-term lifestyle changes of improved nutrition, increased exercise and activity, stress reduction, adequate sleep and behavioral modification versus short-term dieting. Before starting the program the biggest reasons for weight struggles include depression, stress eating, health issues, medications I am or have taken, work stress, poor sleep, Family weight issues , mom, dad, grandparents, boredom eater. Exercise before starting the program: yes, strength, cardio, stretch, bike. She is now strength training, walking and dance cardio 5 to 6 days a week. Her weight was once up to 335 pounds. She was very successful recently with [employer]olaly, doing the beach body portion fix, completely given up gluten and dairy, eating a lot vegetables but does still eat some meat and trying to eat healthy whole foods over the last couple years and got down to 183 pounds before the school year. She is on a B12 supplement. She previously had a very stressful school year. She has again gained back a significant amount of weight almost up to her start weight. She notes a lot of people have told her she could not do it. She felt it was her fault she had gained the weight back, because she did not understand brains regulation of weight. I discussed with her how big of success she is and the risk of having unrealistic goals. She must rest concentrate on being as healthy as she can. Her PCP just started her on Ozempic 0.25 mg before he sent her to our program and she already started to feel full quicker without any side effects. Her insurance covers Ozempic since she had been diabetic. She has felt much better since she lost all the weight and has been eating healthier and exercising she notes she rarely gets sick now. She sees an cycle repairer and she had -24-hour cortisol studies in the past. She has a psychiatrist in [facility] who treats her depression but her PHQ-9 was 15 with starting the program. She does take 200 mg of trazodone to help with sleep at night but still has some nocturnal awakening. She carries a past diagnosis of diabetes when she had significant weight issues but her last A1c is down to 5.7 with her significant lifestyle change before starting the program. We will continue Ozempic to help with weight maintenance and possibly further weight loss. 3. Type 2 [id number] with A1c of 4.9 with addition of Ozempic and starting our program. She will continue first-line treatment with lifestyle changes, decrease simple sweets and starches, increase exercise, Ozempic, metformin and weight loss. She was on Januvia and metformin 1000 mg daily before starting the program. We stopped Januvia since she is on Ozempic. 4. PCOS-on metformin with positive acanthosis nigracans. 5. Hypertension-well controlled on lisinopril even with adding phentermine. Continue to treat with a low-salt diet, decreased processed and restaurant foods, healthy lifestyle changes and achieve long-term weight loss. Monitor outside the office with adding phentermine. 6. Obstructive sleep apnea-she notes that since she lost so much weight she was rechecked and does not require CPAP as long as she can keep her weight loss off. 7. Depression-she follows up with psychiatry and is on Prestiq. She is getting frequent counseling. She has strong leobardo. She notes she was hospitalized in the past for depression. She is depressed about her weight regain. 8. Insomnia-controlled with good sleep hygiene and trazodone 200 mg at at bedtime. 9. GERD-she is had a slight increase with starting Ozempic. I gave her handout on antireflux diet we will also treat with weight loss. She had been on omeprazole in the past but did not think she needed it now. We discussed step medical therapy if her symptoms worsen. 10. Status post colectomy she notes she was on a protein sparing modified fast from the [facility] and had such significant constipation she did up losing colonic function and had to have a colectomy and reattachment. She notes her stools are normally loose now. 11. 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 12. Metabolic syndrome-treat with long-term healthy lifestyle changes, behavioral changes, healthy nutritional changes, increased activity and exercise and achieve long-term weight loss. Follow up with me in 8 weeks. New labs needed: She will continue regular metabolic blood work follow-up and A1c with her PCP. She will need her B12 followed up [facility] Work Phone: [phone] Evaluation note* Author Leona Gotti [facility] Authored September 07, 2023 9:36 am Highest weight: 335 lbs. She is down 124.2 lbs. Start weight: 215.5 lbs. She is down 4.7 lbs today with a weight of 210.8 lbs. She is down 2.3 lbs. since last visit on 07/27/23. Starting Date: 01-11-2022. She was taking Ozempic 0.25 mg x 5 doses before starting the program. We had increased her to full dose. Program start weight 215.5 pounds. She is down 4.7 lbs. Phentermine start date 03/08/2023. Phentermine start weight 225.8 pounds. Down 15.0 lbs. 1. Abnormal weight gain. She has a strong family history of obesity with her dad being about 400 pounds, mom about 350 pounds, but obesity is strong on both sides of the family. She has a strong family history of type II diabetes in both her maternal grandmother dad, and in multiple paternal and maternal aunts and uncles. 2. Obesity-Weight maintenance since adding phentermine 37.5 mg to her Ozempic 2 mg. She has some mild GI side effects but are very tolerable with Ozempic. Her only side effect from phentermine 37.5 mg now is some dry mouth. She feels as given her more energy, improved her mood and has allowed her to be much more active. She is now eating healthy [employer]. She had significant recent weight regain which she previously thought may have been related to her depression medications which are being adjusted. We could consider adding Topamax the future as she has had a tubal ligation. I have recommended she consider bariatric surgery as her weight is such an mental health issue despite counseling. She does not want to consider bariatric surgery. She still feels like people are rooting against her to gain her weight back. I discussed multiple times with her that she should not jeannine the scale/scale goals and ejannine good health. She is following a very healthy lifestyle. We have discussed multiple times, in detail, the brains regulation of weight. She was doing good on Ozempic 2 mg for her diabetes and to help with appetite control and long-term weight loss, but has had weight regain with going down to smaller doses. She also takes 1000 mg of metformin for her diabetes and PCOS. She should continue to treat with long-term lifestyle changes of improved nutrition, increased exercise and activity, stress reduction, adequate sleep and behavioral modification versus short-term dieting. Before starting the program the biggest reasons for weight struggles include depression, stress eating, health issues, medications I am or have taken, work stress, poor sleep, Family weight issues , mom, dad, grandparents, boredom eater. Exercise before starting the program: yes, strength, cardio, stretch, bike. She is now strength training, walking and dance cardio 5 to 6 days a week. Her weight was once up to 335 pounds. She was very successful recently with Noom, doing the beach body portion fix, completely given up gluten and dairy, eating a lot vegetables but does still eat some meat and trying to eat healthy whole foods over the last couple years and got down to 183 pounds before the school year. She is on a B12 supplement. She previously had a very stressful school year. She has again gained back a significant amount of weight almost up to her start weight. She notes a lot of people have told her she could not do it. She felt it was her fault she had gained the weight back, because she did not understand brains regulation of weight. I discussed with her how big of success she is and the risk of having unrealistic goals. She must rest concentrate on being as healthy as she can. Her PCP just started her on Ozempic 0.25 mg before he sent her to our program and she already started to feel full quicker without any side effects. Her insurance covers Ozempic since she had been diabetic. She has felt much better since she lost all the weight and has been eating healthier and exercising she notes she rarely gets sick now. She sees an cycle repairer and she had -24-hour cortisol studies in the past. She has a psychiatrist in [facility] who treats her depression but her PHQ-9 was 15 with starting the program. She does take 200 mg of trazodone to help with sleep at night but still has some nocturnal awakening. She carries a past diagnosis of diabetes when she had significant weight issues but her last A1c is down to 5.7 with her significant lifestyle change before starting the program. We will continue Ozempic to help with weight maintenance and possibly further weight loss. 3. Type 2 [id number] with A1c of 4.9 with addition of Ozempic and starting our program. She will continue first-line treatment with lifestyle changes, decrease simple sweets and starches, increase exercise, Ozempic, metformin and weight loss. She was on Januvia and metformin 1000 mg daily before starting the program. We stopped Januvia since she is on Ozempic. 4. PCOS-on metformin with positive acanthosis nigracans. 5. Hypertension-well controlled on lisinopril even with adding phentermine. Continue to treat with a low-salt diet, decreased processed and restaurant foods, healthy lifestyle changes and achieve long-term weight loss. Monitor outside the office with adding phentermine. 6. Obstructive sleep apnea-she notes that since she lost so much weight she was rechecked and does not require CPAP as long as she can keep her weight loss off. 7. Depression-she follows up with psychiatry and is on Prestiq. She is getting frequent counseling. She has strong leobardo. She notes she was hospitalized in the past for depression. She is depressed about her weight regain. 8. Insomnia-controlled with good sleep hygiene and trazodone 200 mg at at bedtime. 9. GERD-she is had a slight increase with starting Ozempic. I gave her handout on antireflux diet we will also treat with weight loss. She had been on omeprazole in the past but did not think she needed it now. We discussed step medical therapy if her symptoms worsen. 10. Status post colectomy she notes she was on a protein sparing modified fast from the [facility] and had such significant constipation she did up losing colonic function and had to have a colectomy and reattachment. She notes her stools are normally loose now. 11. 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 12. Metabolic syndrome-treat with long-term healthy lifestyle changes, behavioral changes, healthy nutritional changes, increased activity and exercise and achieve long-term weight loss. Follow up with me in 6 weeks. New labs needed: She will continue regular metabolic blood work follow-up and A1c with her PCP. She will need her B12 followed up. Author Hector Turner [facility] Authored July 27, 2023 9:18 am Highest weight: 335 lbs. She is down 121.9 lbs. Start weight: 215.5 lbs. She is down 2.4 lbs today with a weight of 213.1 lbs. She is up 1.1 lbs. since last visit on 06/08/23. Starting Date: 01-11-2022. She was taking Ozempic 0.25 mg x 5 doses before starting the program. We had increased her to full dose. Program start weight 215.5 pounds. She is down 2.4 lbs. 7.8 lbs. total today Phentermine start date 03/08/2023. Phentermine start weight 225.8 pounds. Down 12.7 lbs. 1. Abnormal weight gain. She has a strong family history of obesity with her dad being about 400 pounds, mom about 350 pounds, but obesity is strong on both sides of the family. She has a strong family history of type II diabetes in both her maternal grandmother dad, and in multiple paternal and maternal aunts and uncles. 2. Obesity-Weight maintenance since adding phentermine 37.5 mg to her Ozempic 2 mg. She has some mild GI side effects but are very tolerable with Ozempic. Her only side effect from phentermine 37.5 mg now is some dry mouth. She feels as given her more energy, improved her mood and has allowed her to be much more active. She is now eating healthy [employer]. She had significant recent weight regain which she previously thought may have been related to her depression medications which are being adjusted. We could consider adding Topamax the future as she has had a tubal ligation. I have recommended she consider bariatric surgery as her weight is such an mental health issue despite counseling. She does not want to consider bariatric surgery. She still feels like people are rooting against her to gain her weight back. I discussed multiple times with her that she should not jeannine the scale/scale goals and jeannine good health. She is following a very healthy lifestyle. We have discussed multiple times, in detail, the brains regulation of weight. She was doing good on Ozempic 2 mg for her diabetes and to help with appetite control and long-term weight loss, but has had weight regain with going down to smaller doses. She also takes 1000 mg of metformin for her diabetes and PCOS. She should continue to treat with long-term lifestyle changes of improved nutrition, increased exercise and activity, stress reduction, adequate sleep and behavioral modification versus short-term dieting. Before starting the program the biggest reasons for weight struggles include depression, stress eating, health issues, medications I am or have taken, work stress, poor sleep, Family weight issues , mom, dad, grandparents, boredom eater. Exercise before starting the program: yes, strength, cardio, stretch, bike. She is now strength training, walking and dance cardio 5 to 6 days a week. Her weight was once up to 335 pounds. She was very successful recently with Noom, doing the [employer] body portion fix, completely given up gluten and dairy, eating a lot vegetables but does still eat some meat and trying to eat healthy whole foods over the last couple years and got down to 183 pounds before the school year. She is on a B12 supplement. She previously had a very stressful school year. She has again gained back a significant amount of weight almost up to her start weight. She notes a lot of people have told her she could not do it. She felt it was her fault she had gained the weight back, because she did not understand brains regulation of weight. I discussed with her how big of success she is and the risk of having unrealistic goals. She must rest concentrate on being as healthy as she can. Her PCP just started her on Ozempic 0.25 mg before he sent her to our program and she already started to feel full quicker without any side effects. Her insurance covers Ozempic since she had been diabetic. She has felt much better since she lost all the weight and has been eating healthier and exercising she notes she rarely gets sick now. She sees an cycle repairer and she had -24-hour cortisol studies in the past. She has a psychiatrist in [facility] who treats her depression but her PHQ-9 was 15 with starting the program. She does take 200 mg of trazodone to help with sleep at night but still has some nocturnal awakening. She carries a past diagnosis of diabetes when she had significant weight issues but her last A1c is down to 5.7 with her significant lifestyle change before starting the program. We will continue Ozempic to help with weight maintenance and possibly further weight loss. 3. Type 2 [id number] with A1c of 4.9 with addition of Ozempic and starting our program. She will continue first-line treatment with lifestyle changes, decrease simple sweets and starches, increase exercise, Ozempic, metformin and weight loss. She was on Januvia and metformin 1000 mg daily before starting the program. We stopped Januvia since she is on Ozempic. 4. PCOS-on metformin with positive acanthosis nigracans. 5. Hypertension-well controlled on lisinopril even with adding phentermine. Continue to treat with a low-salt diet, decreased processed and restaurant foods, healthy lifestyle changes and achieve long-term weight loss. Monitor outside the office with adding phentermine. 6. Obstructive sleep apnea-she notes that since she lost so much weight she was rechecked and does not require CPAP as long as she can keep her weight loss off. 7. Depression-she follows up with psychiatry and is on Prestiq. She is getting frequent counseling. She has strong leobardo. She notes she was hospitalized in the past for depression. She is depressed about her weight regain. 8. Insomnia-controlled with good sleep hygiene and trazodone 200 mg at at bedtime. 9. GERD-she is had a slight increase with starting Ozempic. I gave her handout on antireflux diet we will also treat with weight loss. She had been on omeprazole in the past but did not think she needed it now. We discussed step medical therapy if her symptoms worsen. 10. Status post colectomy she notes she was on a protein sparing modified fast from the [facility] and had such significant constipation she did up losing colonic function and had to have a colectomy and reattachment. She notes her stools are normally loose now. 11. 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 12. Metabolic syndrome-treat with long-term healthy lifestyle changes, behavioral changes, healthy nutritional changes, increased activity and exercise and achieve long-term weight loss. Follow up with me in 6 weeks. New labs needed: She will continue regular metabolic blood work follow-up and A1c with her PCP. She will need her B12 followed up. [facility] Work Phone: [phone] Evaluation note* Author Hector Turner [facility] Authored June 08, 2023 9:0 8am Highest weight: 335 lbs. She is down 122.7 lbs. Start weight: 215.5 lbs. She is down 3.2 lbs today with a weight of 212.3 lbs. She is down 11.0 lbs. since last visit on 04/13/2023 Starting Date: 01-11-2022. She was taking Ozempic 0.25 mg x 5 doses before starting the program. We had increased her to full dose. Program start weight 215.5 pounds. She is down 3.2 lbs. 7.8 lbs. total today Phentermine start date 03/08/2023. Phentermine start weight 225.8 pounds. Down 2.5 lbs. 1. Abnormal weight gain. She has a strong family history of obesity with her dad being about 400 pounds, mom about 350 pounds, but obesity is strong on both sides of the family. She has a strong family history of type II diabetes in both her maternal grandmother dad, and in multiple paternal and maternal aunts and uncles. 2. Obesity-significant improvement since adding phentermine to her Ozempic 2 mg. She has some mild GI side effects but are very tolerable with Ozempic. Her only side effect from phentermine 37.5 mg now is some dry mouth. She feels as given her more energy, improved her mood and has allowed her to be much more active. She is now eating healthy [employer]. She is not having any sleep issues. She had significant recent weight regain which she previously thought may have been related to her depression medications which are being adjusted. We could consider adding Topamax the future as she has had a tubal ligation. I have recommended she consider bariatric surgery as her weight is such an mental health issue despite counseling. She does not want to consider bariatric surgery. She still feels like people are rooting against her to gain her weight back. I discussed multiple times with her that she should not jeannine the scale/scale goals and jeannine good health. She is following a very healthy lifestyle. We have discussed multiple times, in detail, the brains regulation of weight. She was doing good on Ozempic 2 mg for her diabetes and to help with appetite control and long-term weight loss, but has had weight regain with going down to smaller doses. She also takes 1000 mg of metformin for her diabetes and PCOS. She should continue to treat with long-term lifestyle changes of improved nutrition, increased exercise and activity, stress reduction, adequate sleep and behavioral modification versus short-term dieting. Before starting the program the biggest reasons for weight struggles include depression, stress eating, health issues, medications I am or have taken, work stress, poor sleep, Family weight issues , mom, dad, grandparents, boredom eater. Exercise before starting the program: yes, strength, cardio, stretch, bike. She is now strength training, walking and dance cardio 5 to 6 days a week. Her weight was once up to 335 pounds. She was very successful recently with [employer], doing the [employer] body portion fix, completely given up gluten and dairy, eating a lot vegetables but does still eat some meat and trying to eat healthy whole foods over the last couple years and got down to 183 pounds before the school year. She is on a B12 supplement. She previously had a very stressful school year. She has again gained back a significant amount of weight almost up to her start weight. She notes a lot of people have told her she could not do it. She felt it was her fault she had gained the weight back, because she did not understand brains regulation of weight. I discussed with her how big of success she is and the risk of having unrealistic goals. She must rest concentrate on being as healthy as she can. Her PCP just started her on Ozempic 0.25 mg before he sent her to our program and she already started to feel full quicker without any side effects. Her insurance covers Ozempic since she had been diabetic. She has felt much better since she lost all the weight and has been eating healthier and exercising she notes she rarely gets sick now. She sees an cycle repairer and she had -24-hour cortisol studies in the past. She has a psychiatrist in [facility] who treats her depression but her PHQ-9 was 15 with starting the program. She does take 200 mg of trazodone to help with sleep at night but still has some nocturnal awakening. She carries a past diagnosis of diabetes when she had significant weight issues but her last A1c is down to 5.7 with her significant lifestyle change before starting the program. We will continue Ozempic to help with weight maintenance and possibly further weight loss. 3. Type 2 [id number] with A1c of 4.9 with addition of Ozempic and starting our program. She will continue first-line treatment with lifestyle changes, decrease simple sweets and starches, increase exercise, Ozempic, metformin and weight loss. She was on Januvia and metformin 1000 mg daily before starting the program. We stopped Januvia since she is on Ozempic. 4. PCOS-on metformin with positive acanthosis nigracans. 5. Hypertension-well controlled on lisinopril even with adding phentermine. Continue to treat with a low-salt diet, decreased processed and restaurant foods, healthy lifestyle changes and achieve long-term weight loss. Monitor outside the office with adding phentermine. 6. Obstructive sleep apnea-she notes that since she lost so much weight she was rechecked and does not require CPAP as long as she can keep her weight loss off. 7. Depression-she follows up with psychiatry and is on Trintellix. She notes she was hospitalized in the past for depression. She is depressed about her weight regain. 8. Insomnia-controlled with good sleep hygiene and trazodone 200 mg at at bedtime. 9. GERD-she is had a slight increase with starting Ozempic. I gave her handout on antireflux diet we will also treat with weight loss. She had been on omeprazole in the past but did not think she needed it now. We discussed step medical therapy if her symptoms worsen. 10. Status post colectomy she notes she was on a protein sparing modified fast from the [facility] and had such significant constipation she did up losing colonic function and had to have a colectomy and reattachment. She notes her stools are normally loose now. 11. 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 12. Metabolic syndrome-treat with long-term healthy lifestyle changes, behavioral changes, healthy nutritional changes, increased activity and exercise and achieve long-term weight loss. Follow up with me in 6-8 weeks. New labs needed: She will continue regular metabolic blood work follow-up and A1c with her PCP. She will need her B12 followed up. [facility] Work Phone: [phone] Evaluation note* Author Hector Turner [facility] Authored June 08, 2023 9:0 8am Highest weight: 335 lbs. She is down 122.7 lbs. Start weight: 215.5 lbs. She is down 3.2 lbs today with a weight of 212.3 lbs. She is down 11.0 lbs. since last visit on 04/13/2023 Starting Date: 01-11-2022. She was taking Ozempic 0.25 mg x 5 doses before starting the program. We had increased her to full dose. Program start weight 215.5 pounds. She is down 3.2 lbs. 7.8 lbs. total today Phentermine start date 03/08/2023. Phentermine start weight 225.8 pounds. Down 2.5 lbs. 1. Abnormal weight gain. She has a strong family history of obesity with her dad being about 400 pounds, mom about 350 pounds, but obesity is strong on both sides of the family. She has a strong family history of type II diabetes in both her maternal grandmother dad, and in multiple paternal and maternal aunts and uncles. 2. Obesity-significant improvement since adding phentermine to her Ozempic 2 mg. She has some mild GI side effects but are very tolerable with Ozempic. Her only side effect from phentermine 37.5 mg now is some dry mouth. She feels as given her more energy, improved her mood and has allowed her to be much more active. She is now eating healthy [employer]. She is not having any sleep issues. She had significant recent weight regain which she previously thought may have been related to her depression medications which are being adjusted. We could consider adding Topamax the future as she has had a tubal ligation. I have recommended she consider bariatric surgery as her weight is such an mental health issue despite counseling. She does not want to consider bariatric surgery. She still feels like people are rooting against her to gain her weight back. I discussed multiple times with her that she should not jeannine the scale/scale goals and jeannine good health. She is following a very healthy lifestyle. We have discussed multiple times, in detail, the brains regulation of weight. She was doing good on Ozempic 2 mg for her diabetes and to help with appetite control and long-term weight loss, but has had weight regain with going down to smaller doses. She also takes 1000 mg of metformin for her diabetes and PCOS. She should continue to treat with long-term lifestyle changes of improved nutrition, increased exercise and activity, stress reduction, adequate sleep and behavioral modification versus short-term dieting. Before starting the program the biggest reasons for weight struggles include depression, stress eating, health issues, medications I am or have taken, work stress, poor sleep, Family weight issues , mom, dad, grandparents, boredom eater. Exercise before starting the program: yes, strength, cardio, stretch, bike. She is now strength training, walking and dance cardio 5 to 6 days a week. Her weight was once up to 335 pounds. She was very successful recently with [employer], doing the [employer] body portion fix, completely given up gluten and dairy, eating a lot vegetables but does still eat some meat and trying to eat healthy whole foods over the last couple years and got down to 183 pounds before the school year. She is on a B12 supplement. She previously had a very stressful school year. She has again gained back a significant amount of weight almost up to her start weight. She notes a lot of people have told her she could not do it. She felt it was her fault she had gained the weight back, because she did not understand brains regulation of weight. I discussed with her how big of success she is and the risk of having unrealistic goals. She must rest concentrate on being as healthy as she can. Her PCP just started her on Ozempic 0.25 mg before he sent her to our program and she already started to feel full quicker without any side effects. Her insurance covers Ozempic since she had been diabetic. She has felt much better since she lost all the weight and has been eating healthier and exercising she notes she rarely gets sick now. She sees an cycle repairer and she had -24-hour cortisol studies in the past. She has a psychiatrist in [facility] who treats her depression but her PHQ-9 was 15 with starting the program. She does take 200 mg of trazodone to help with sleep at night but still has some nocturnal awakening. She carries a past diagnosis of diabetes when she had significant weight issues but her last A1c is down to 5.7 with her significant lifestyle change before starting the program. We will continue Ozempic to help with weight maintenance and possibly further weight loss. 3. Type 2 [id number] with A1c of 4.9 with addition of Ozempic and starting our program. She will continue first-line treatment with lifestyle changes, decrease simple sweets and starches, increase exercise, Ozempic, metformin and weight loss. She was on Januvia and metformin 1000 mg daily before starting the program. We stopped Januvia since she is on Ozempic. 4. PCOS-on metformin with positive acanthosis nigracans. 5. Hypertension-well controlled on lisinopril even with adding phentermine. Continue to treat with a low-salt diet, decreased processed and restaurant foods, healthy lifestyle changes and achieve long-term weight loss. Monitor outside the office with adding phentermine. 6. Obstructive sleep apnea-she notes that since she lost so much weight she was rechecked and does not require CPAP as long as she can keep her weight loss off. 7. Depression-she follows up with psychiatry and is on Trintellix. She notes she was hospitalized in the past for depression. She is depressed about her weight regain. 8. Insomnia-controlled with good sleep hygiene and trazodone 200 mg at at bedtime. 9. GERD-she is had a slight increase with starting Ozempic. I gave her handout on antireflux diet we will also treat with weight loss. She had been on omeprazole in the past but did not think she needed it now. We discussed step medical therapy if her symptoms worsen. 10. Status post colectomy she notes she was on a protein sparing modified fast from the [facility] and had such significant constipation she did up losing colonic function and had to have a colectomy and reattachment. She notes her stools are normally loose now. 11. 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 12. Metabolic syndrome-treat with long-term healthy lifestyle changes, behavioral changes, healthy nutritional changes, increased activity and exercise and achieve long-term weight loss. Follow up with me in 6-8 weeks. New labs needed: She will continue regular metabolic blood work follow-up and A1c with her PCP. She will need her B12 followed up. Author Leona Gotti [facility] Authored July 27, 2023 8:58 am Highest weight: 335 lbs. She is down 121.9 lbs. Start weight: 215.5 lbs. She is down 2.4 lbs today with a weight of 213.1 lbs. She is up 1.1 lbs. since last visit on 06/08/23. Starting Date: 01-11-2022. She was taking Ozempic 0.25 mg x 5 doses before starting the program. We had increased her to full dose. Program start weight 215.5 pounds. She is down 2.4 lbs. 7.8 lbs. total today Phentermine start date 03/08/2023. Phentermine start weight 225.8 pounds. Down 12.7 lbs. 1. Abnormal weight gain. She has a strong family history of obesity with her dad being about 400 pounds, mom about 350 pounds, but obesity is strong on both sides of the family. She has a strong family history of type II diabetes in both her maternal grandmother dad, and in multiple paternal and maternal aunts and uncles. 2. Obesity-significant improvement since adding phentermine to her Ozempic 2 mg. She has some mild GI side effects but are very tolerable with Ozempic. Her only side effect from phentermine 37.5 mg now is some dry mouth. She feels as given her more energy, improved her mood and has allowed her to be much more active. She is now eating healthy [employer]. She is not having any sleep issues. She had significant recent weight regain which she previously thought may have been related to her depression medications which are being adjusted. We could consider adding Topamax the future as she has had a tubal ligation. I have recommended she consider bariatric surgery as her weight is such an mental health issue despite counseling. She does not want to consider bariatric surgery. She still feels like people are rooting against her to gain her weight back. I discussed multiple times with her that she should not jeannine the scale/scale goals and jeannine good health. She is following a very healthy lifestyle. We have discussed multiple times, in detail, the brains regulation of weight. She was doing good on Ozempic 2 mg for her diabetes and to help with appetite control and long-term weight loss, but has had weight regain with going down to smaller doses. She also takes 1000 mg of metformin for her diabetes and PCOS. She should continue to treat with long-term lifestyle changes of improved nutrition, increased exercise and activity, stress reduction, adequate sleep and behavioral modification versus short-term dieting. Before starting the program the biggest reasons for weight struggles include depression, stress eating, health issues, medications I am or have taken, work stress, poor sleep, Family weight issues , mom, dad, grandparents, boredom eater. Exercise before starting the program: yes, strength, cardio, stretch, bike. She is now strength training, walking and dance cardio 5 to 6 days a week. Her weight was once up to 335 pounds. She was very successful recently with [employer], doing the beach body portion fix, completely given up gluten and dairy, eating a lot vegetables but does still eat some meat and trying to eat healthy whole foods over the last couple years and got down to 183 pounds before the school year. She is on a B12 supplement. She previously had a very stressful school year. She has again gained back a significant amount of weight almost up to her start weight. She notes a lot of people have told her she could not do it. She felt it was her fault she had gained the weight back, because she did not understand brains regulation of weight. I discussed with her how big of success she is and the risk of having unrealistic goals. She must rest concentrate on being as healthy as she can. Her PCP just started her on Ozempic 0.25 mg before he sent her to our program and she already started to feel full quicker without any side effects. Her insurance covers Ozempic since she had been diabetic. She has felt much better since she lost all the weight and has been eating healthier and exercising she notes she rarely gets sick now. She sees an cycle repairer and she had -24-hour cortisol studies in the past. She has a psychiatrist in [facility] who treats her depression but her PHQ-9 was 15 with starting the program. She does take 200 mg of trazodone to help with sleep at night but still has some nocturnal awakening. She carries a past diagnosis of diabetes when she had significant weight issues but her last A1c is down to 5.7 with her significant lifestyle change before starting the program. We will continue Ozempic to help with weight maintenance and possibly further weight loss. 3. Type 2 [id number] with A1c of 4.9 with addition of Ozempic and starting our program. She will continue first-line treatment with lifestyle changes, decrease simple sweets and starches, increase exercise, Ozempic, metformin and weight loss. She was on Januvia and metformin 1000 mg daily before starting the program. We stopped Januvia since she is on Ozempic. 4. PCOS-on metformin with positive acanthosis nigracans. 5. Hypertension-well controlled on lisinopril even with adding phentermine. Continue to treat with a low-salt diet, decreased processed and restaurant foods, healthy lifestyle changes and achieve long-term weight loss. Monitor outside the office with adding phentermine. 6. Obstructive sleep apnea-she notes that since she lost so much weight she was rechecked and does not require CPAP as long as she can keep her weight loss off. 7. Depression-she follows up with psychiatry and is on Trintellix. She notes she was hospitalized in the past for depression. She is depressed about her weight regain. 8. Insomnia-controlled with good sleep hygiene and trazodone 200 mg at at bedtime. 9. GERD-she is had a slight increase with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 Federal Confidentiality of Alcohol and Drug Abuse Patient Records regulations: The Federal rules restrict any use of the information to criminally investigate or prosecute any alcohol or drug abuse patient.[facility] REASON FOR VISIT (unrecogniz ed section and content) initial WMNNo InformationDC OzempicWMN Dr Oro/SLOAN cannot find ozempicNo Information6 weekDC Ozempic PA2 month Follow up2 month Follow upDC Ozempic/MounjaroDC dose change?3 month Follow up2 month Follow upDC Script2 month Follow up Care Teams (unrecognized sec tion and content) Team Status: Active Member Role Status Dates Atilio Neff MD Primary Care Provider Active Team Status: Inactive Member Role Status Dates Atilio Neff MD Primary Care Provider Active Start: October 31, 2023 End: October 31, 2023 Hector Turner MD Attending Provider Active Start: October 31, 2023 End: October 31, 2023 Team Status: Inactive Member Role Status Dates Atilio Neff MD Primary Care Provider Active Start: December 14, 2023 End: December 14, 2023 Hector Turner MD Attending Provider Active Start: December 14, 2023 End: December 14, 2023 Team Status: Active Member Role Status Dates Atilio Neff MD Primary Care Pro vider, Attending Provider Active Start: September 06, 2023 Team Status: Inactive Member Role Status Dates Atilio Neff MD Primary Care Provider Active Start: September 07, 2023 End: September 07, 2023 Hector Turner MD Attending Provider Active Start: September 07, 2023 End: September 07, 2023 Team Status: Inactive Member Role Status Dates Atilio Neff MD Primary Care Provider Active Start: June 08, 2023 End: June 08, 2023 Hector Turner MD Attending Provider Active Start: June 08, 2023 End: June 08, 2023 Team Status: Active Member Role Status Dates Atilio Neff MD Primary Care Provider Active Start: April 04, 2023 Lisa Gleason Attending Provider Active Start: 2023 Team Status: Inactive Member Role Status Dates Atilio Neff MD Primary Care Provider Active Start: April 13, 2023 End: April 13, 2023 Hector Turner MD Attending Provider Active Start: April 13, 2023 End: April 13, 2023 Team Status: Inactive Member Role Status Dates Atilio Neff MD Primary Care Provider Active Start: July 27, 2023 End: July 27, 2023 Hector Turner MD Attending Provider Active Start: July 27, 2023 End: July 27, 2023 Team Status: Active Member Role Status Dates Atilio Neff MD Primary Care Pro vider, Attending Provider Active Start: July 30, 2023 Team Status: Inactive Member Role Status Dates Atilio Neff MD Primary Care Provider Active Start: February 15, 2024 End: February 15, 2024 Hector Turner MD Attending Provider Active Start: February 15, 2024 End: February 15, 2024 Goals (unrecognized section and content) Goals may be documented in a n alternate section FOR RECORDS PERTAINING TO PATIENTS WHO ARE OR HAVE BEEN ENROLLED IN A CHEMICAL DEPENDENCY/SUBSTANCEABUSE PROGRAM, SOME INFORMATION MAY BE OMITTED. This clinical summary was aggregated from multiple sources. Caution should be exercised in using it in the provision of clinical care. This summary normalizes information from multiple sources, and as a consequence, information in this document may materially change the coding, format and clinical context of patient data. In addition, data may be omitted in some cases. CLINICAL DECISIONS SHOULD BE BASED ON THE PRIMARY CLINICAL RECORDS. [facility] [email or web address] provides no warranty or guarantee of the accuracy or completeness of information in this document.
== END 2024-04-07 21:13 | disposition home or self-care (01) ==
LOC: LAB 21:12
PROVIDERS: Visit Provider Physician Assistant
DX: Z01.419 Encounter for gynecological examination (general) (routine) without abnormal findings (principal)
CPT/HCPCS: 87624; 88175